=== PATIENT | female | born 1940 | race Caucasian/White ===

== ENCOUNTER 2016-09-08 13:18 | Emergency (ER) | payer OTHER ==
[~2016-09-08 13:18] MED LIST: ALLO100T PO; AMIT25TA20 PO; AMLO10 PO; CLON-352 PO; COLE1TAB2 PO; FISH1000 PO; MAXZ25 PO; PRAV40TA2 PO
[2016-09-08 13:40] VITALS: BP 126/61; PULSE 89; RESP 20; TEMP 99.4; O2SAT 95
[2016-09-08 13:44] VITALS: BP 125/60; PULSE 88; RESP 20; TEMP 99.4; O2SAT 96
--- NOTE | 2016-09-08 13:53 | PD ---
HPI . dizziness and fever since earlier today while getting off the bus Chief Complaint: Fever Time Seen by Provider: 13:53 Travel History International Travel<30 days: No Contact w/Intl Traveler<30days: No Traveled to known affect area: No History of Present Illness HPI 76-year-old female with history of end-stage renal disease on dialysis, questionable diabetes, hypertension, hyperlipidemia, neuropathy, gout and GERD here with complaints of some dizziness and staggering while getting off the bus. Patient was brought in via [facility] and was found to have a mild temperature elevation of 99.4. She was given 1500 mL of fluids and is now feeling significantly better. She tells me that she had to run out of her house this morning and had not had much to eat or drink. She says she had been walking around outside and after getting off the bus felt somewhat dizzy. She denies any loss of consciousness or altered mental status. She tells me that she is feeling really good and has no specific complaints at this time. At the time of examination patient denies any chest pain, shortness of breath, nausea, vomiting, diaphoresis, abdominal pain, weakness, or fatigue. PFSH Past Medical History Cancer: No Cardiovascular Problems: No High Cholesterol: Yes Coronary Artery Disease: Yes Diabetes: No Diminished Hearing: No Gout: Yes Hepatitis: No Hiatal Hernia: No Hypertension: Yes Medical other: No Neurologic: Yes (NEUROPATHY) Respiratory: No Thyroid Disease: No ?: Not Menopausal: Yes Tubal Ligation: Yes Past Surgical History Other Surgery: Yes (LT ARM FISTULA) Social History Alcohol Use: No Tobacco Use: No Substance Use: No Allergies-Medications (Allergen,Severity, Reaction): Coded Allergies: No Known Allergies (Verified , 09/08/16) Reported Meds & Prescriptions Reported Meds & Active Scripts Active Keflex (Cephalexin) 500 Mg Cap 500 Mg PO Q6H Review of Systems General / Constitutional: No: Fever Eyes: No: Visual changes HENT: No: Headaches Cardiovascular: No: Chest Pain or Discomfort Respiratory: No: Shortness of Breath Gastrointestinal: No: Abdominal Pain Genitourinary: No: Dysuria Musculoskeletal: No: Pain Skin: No Rash Neurologic: Positive: Dizziness, No: Weakness Psychiatric: No: Depression Endocrine: No: Polydipsia Hematologic/Lymphatic: No: Easy Bruising Physical Exam Narrative GENERAL: AAO x 3, no acute distress, Well-nourished, well-developed patient. SKIN: Warm and dry. No visible rashes or bruising. HEAD: Normocephalic and atraumatic. EYES: No scleral icterus. No injection or drainage. EOM intact, PERRLA ENT: No nasal drainage noted. Mucous membranes pink. Airway patent. NECK: Supple, trachea midline. No JVD. CARDIOVASCULAR: Regular rate and rhythm without murmurs, gallops, or rubs. RESPIRATORY: Breath sounds equal bilaterally. No accessory muscle use. No rhonchi or rales. GASTROINTESTINAL: Abdomen soft, non-tender, nondistended. EXTREMITIES: No cyanosis or edema. BACK: Nontender without obvious deformity. No CVA tenderness. PSYCH: AAO x 3, normal affect. Data Data Last Documented VS Vital Signs Date Time Temp Pulse Resp B/P Pulse Ox O2 Delivery O2 Flow Rate FiO2 09/08/16 14:59 77 20 125/60 96 Room Air 09/08/16 13:44 99.4 Orders Electrocardiogram (09/08/16 13:53) Complete Blood Count With Diff (09/08/16 13:53) Blood Glucose (09/08/16 13:53) Ecg Monitoring (09/08/16 13:53) Iv Access Insert/Monitor (09/08/16 13:53) Oximetry (09/08/16 13:53) Sodium Chloride 0.9% Flush (Ns Flush) (09/08/16 14:00) Basic Metabolic Panel (Bmp) (09/08/16 13:53) Sodium Chloride 0.9% Flush (Ns Flush) (09/08/16 14:00) Lactic Acid Sepsis Protocol (09/08/16 13:58) Urinalysis - C+S If Indicated (09/08/16 13:58) Blood Culture (09/08/16 13:58) Chest, Single Ap (09/08/16 13:58) Sodium Chloride 0.9% Flush (Ns Flush) (09/08/16 14:00) Urine Culture (09/08/16 14:40) Labs Laboratory Tests Test 09/08/16 09/08/16 09/08/16 14:30 14:40 14:50 Lactic Acid Level 0.8 mmol/L Urine Color YELLOW Urine Turbidity HAZY Urine pH 7.5 Urine Specific [place] 1.007 Urine Protein 30 mg/dL Urine Glucose (UA) NEG mg/dL Urine Ketones NEG mg/dL Urine Occult Blood NEG Urine Nitrite NEG Urine Bilirubin NEG Urine Urobilinogen LESS THAN 2.0 MG/DL Urine Leukocyte Esterase MOD Urine WBC 7 /hpf Urine Squamous Epithelial 7 /hpf Cells Urine Transitional Epithelial 2 /hpf Cells Microscopic Urinalysis Comment CATH-CULTURE IND White Blood Count 13.6 TH/MM3 Red Blood Count 3.51 MIL/MM3 Hemoglobin 10.6 GM/DL Hematocrit 31.2 % Mean Corpuscular Volume 88.9 FL Mean Corpuscular Hemoglobin 30.1 PG Mean Corpuscular Hemoglobin 33.8 % Concent Red Cell Distribution Width 13.4 % Platelet Count 234 TH/MM3 Mean Platelet Volume 7.7 FL Neutrophils (%) (Auto) 79.9 % Lymphocytes (%) (Auto) 12.7 % Monocytes (%) (Auto) 5.5 % Eosinophils (%) (Auto) 0.9 % Basophils (%) (Auto) 1.0 % Neutrophils # (Auto) 10.9 TH/MM3 Lymphocytes # (Auto) 1.7 TH/MM3 Monocytes # (Auto) 0.8 TH/MM3 Eosinophils # (Auto) 0.1 TH/MM3 Basophils # (Auto) 0.1 TH/MM3 CBC Comment DIFF FINAL Differential Comment Sodium Level 140 MEQ/L Potassium Level 3.9 MEQ/L Chloride Level 107 MEQ/L Carbon Dioxide Level 21.7 MEQ/L Anion Gap 11 MEQ/L Blood Urea Nitrogen 38 MG/DL Creatinine 3.60 MG/DL Estimat Glomerular Filtration 12 ML/MIN Rate Random Glucose 79 MG/DL Calcium Level 7.7 MG/DL [facility] Medical Decision Making Medical Screen Exam Complete: Yes Emergency Medical Condition: Yes Medical Record Reviewed: Yes Differential Diagnosis dehydration, hypotension, less likely sepsis, Narrative Course 76-year-old female with history of end-stage renal disease on dialysis, questionable diabetes, hypertension, hyperlipidemia, neuropathy, gout and GERD here with complaints of some dizziness and staggering while getting off the bus. Patient was brought in via [facility] and was found to have a mild temperature elevation of 99.4. She was given 1500 mL of fluids and is now feeling significantly better. She tells me that she had to run out of her house this morning and had not had much to eat or drink. She says she had been walking around outside and after getting off the bus felt somewhat dizzy. She denies any loss of consciousness or altered mental status. She tells me that she is feeling really good and has no specific complaints at this time. At the time of examination patient denies any chest pain, shortness of breath, nausea, vomiting, diaphoresis, abdominal pain, weakness, or fatigue. Patient seen and examined. Case discussed with Dr. Salgado recommend cxr, ua, labs, to r/o infection. If normal, patient will be discharged home. White count elevated and patient has urine that is positive for leukocytes Will treat with keflex Needs to f/u with Primary care provider. Patient verbalized understanding of instructions, questions were answered, and thanked me for their care. I advised them if their condition worsens, please return to the nearest emergency room for further care. Diagnosis Primary Impression: Urinary tract infection Qualified Code: N30.00 - Acute cystitis without hematuria Patient Instructions: General Instructions Additional Instructions: Please return to emergency department if your symptoms return or worsen. Follow up with your primary care provider. Take medications as prescribed. Med/Other Pt SpecificInfo: Prescription(s) given, No Change to Meds Scripts Cephalexin (Keflex)500 Mg [id number] Mg PO Q6H #27 CAP Ref 0 Prov:Sarah Pope 09/08/16 Disposition: 01 DISCHARGE HOME Condition: Stable Sarah Pope Sep 08, 2016 13:53
[2016-09-08] MEDS ORDERED: SODIUM CHLORIDE 0.9% FLUSH 5 ML FLUSH IVF PRN ×3 (14:00)
[2016-09-08 14:59] VITALS: BP 125/60; PULSE 77; RESP 20; O2SAT 96
--- NOTE | 2016-09-08 14:59 | RADRPT ---
EXAM DATE/TIME: 09/08/2016 14:33 [place] COMPARISON: CHEST PA & LAT, July 05, 2012, 9:20. INDICATIONS : Shortness of breath. Syncope. MEDICAL HISTORY : Hypertension. Coronary artery disease. SURGICAL HISTORY : None. ENCOUNTER: Initial ACUITY: 1 day PAIN SCORE: 0/10 LOCATION: Bilateral chest FINDINGS: A single view of the chest demonstrates the lungs to be symmetrically aerated without evidence of mas s, infiltrate or effusion. There appear to be some stable calcified probable pleural plaques in the u pper lung olsen. This is unchanged from 2011. The cardiomediastinal contours are unremarkable. Oss eous structures are intact. CONCLUSION: No acute disease. No significant change has occurred. Xavi Davenport MD on September 08, 2016 at 14:57 Board Certified Radiologist. This report was verified electronically.
[2016-09-08 15:03] LABS: BLOOD, URINE NEG (NEG); COMMENT (UR) CATH-CULTURE IND; CULTURE IF INDICATED CATH CULTURE IND; GLUCOSE,URINE NEG (NEG); KETONE, URINE NEG (NEG); NITRITE,URINE NEG (NEG); PH, URINE 7.5 (5.0-8.5); SQUAMOUS EPITHELIAL CELL URINE 7 /hpf (0-5); TRANSITIONAL EPI CELLS, URINE 2 /hpf; URINE COLOR YELLOW (YELLW/STRAW)
[2016-09-08 15:05] LABS: AUTOMATED NEUTROPHIL # 10.9 TH/MM3 (1.8-7.7); BASOPHIL # 0.1 TH/MM3 (0-0.2); EOSINOPHIL # 0.1 TH/MM3 (0-0.4); EOSINOPHIL % 0.9 % (0.0-4.0); HEMATOCRIT 31.2 % (35.0-46.0); HEMO FLAGS DIFF FINAL; LYMPH % 12.7 % (9.0-44.0); LYMPHOCYTE # 1.7 TH/MM3 (1.0-4.8); MEAN CELL VOLUME 88.9 FL (80.0-100.0); MEAN CORPUSCULAR HEMOGLOBIN 30.1 PG (27.0-34.0); MEAN CORPUSCULAR HGB CONC 33.8 % (32.0-36.0); MONO % 5.5 % (0.0-8.0); NEUT % 79.9 % (16.0-70.0); PLATELET COUNT 234 TH/MM3 (150-450); RED BLOOD COUNT 3.51 MIL/MM3 (4.00-5.30); RED CELL DISTRIBUTION WIDTH 13.4 % (11.6-17.2); WHITE BLOOD COUNT 13.6 TH/MM3 (4.0-11.0)
[2016-09-08 15:47] LABS: BICARBONATE 21.7 MEQ/L (21.0-32.0); POTASSIUM 3.9 MEQ/L (3.5-5.1)
[2016-09-08] MEDS ORDERED: CEPH-460 PO (15:51)
--- NOTE | 2016-09-08 16:34 | PD ---
Physical Exam Date Seen by Provider: Sep 08, 2016 Time Seen by Provider: 14:00 Narrative I, Dr. Martinez, have reviewed the advance practice practitioner's documentation and am in agreement, met with the patient face to face, made the diagnosis, and the medical decision making was done by me. *My assessment and Findings: Patient seen and evaluated with PA, please see CHASITY ferraro for further details. Patient presenting with dizziness, after getting off a bus. No focal neurological deficits identified. No chest pains or shortness of breath. She states that she hadn't eat anything this morning. Her initial blood sugar was 98. EKG shows NSR, no ST elevation or depression, and no arrhythmias. No significant T-wave inversions. Laboratory Tests Test 09/08/16 09/08/16 14:40 14:50 Urine Turbidity HAZY (CLEAR) Urine Protein 30 mg/dL (NEG-TRACE) Urine Leukocyte Esterase MOD (NEG) Urine WBC 7 /hpf (0-5) White Blood Count 13.6 TH/MM3 (4.0-11.0) Red Blood Count 3.51 MIL/MM3 (4.00-5.30) Hemoglobin 10.6 GM/DL (11.6-15.3) Hematocrit 31.2 % (35.0-46.0) Neutrophils (%) (Auto) 79.9 % (16.0-70.0) Neutrophils # (Auto) 10.9 TH/MM3 (1.8-7.7) Blood Urea Nitrogen 38 MG/DL (7-18) Creatinine 3.60 MG/DL (0.50-1.00) Estimat Glomerular Filtration 12 ML/MIN (>89) Rate Calcium Level 7.7 MG/DL (8.5-10.1) Last 24 hours Impressions Chest X-Ray 09/08/16 9733 Signed Impressions: Service Date/Time: Thursday, September 08, 2016 14:33 - CONCLUSION: No acute disease. No significant change has occurred. Xavi Davenport MD Patient has end-stage renal disease on dialysis, dialyzed yesterday, her kidney function tests are mildly elevated likely secondary to chronic renal failure. Electrolytes are unremarkable. Vital signs are stable in the ER. EKG did not show dysrhythmias. Symptoms had subsided by the time she is in the ER. At this point, she appears to be doing well and my plan would be to release her with follow-up to primary care physician. Return for any worsening in symptoms as necessary. She does have a UTI which I plan to treat with antibiotics as precaution. The plan was discussed with her and she states understanding. Data Data Last Documented VS Vital Signs Date Time Temp Pulse Resp B/P Pulse Ox O2 Delivery O2 Flow Rate FiO2 09/08/16 14:59 77 20 125/60 96 Room Air 09/08/16 13:44 99.4 Orders Electrocardiogram (09/08/16 13:53) Complete Blood Count With Diff (09/08/16 13:53) Blood Glucose (09/08/16 13:53) Ecg Monitoring (09/08/16 13:53) Iv Access Insert/Monitor (09/08/16 13:53) Oximetry (09/08/16 13:53) Sodium Chloride 0.9% Flush (Ns Flush) (09/08/16 14:00) Basic Metabolic Panel (Bmp) (09/08/16 13:53) Sodium Chloride 0.9% Flush (Ns Flush) (09/08/16 14:00) Lactic Acid Sepsis Protocol (09/08/16 13:58) Urinalysis - C+S If Indicated (09/08/16 13:58) Blood Culture (09/08/16 13:58) Chest, Single Ap (09/08/16 13:58) Sodium Chloride 0.9% Flush (Ns Flush) (09/08/16 14:00) Urine Culture (09/08/16 14:40) Labs Laboratory Tests Test 09/08/16 09/08/16 09/08/16 14:30 14:40 14:50 Lactic Acid Level 0.8 mmol/L Urine Color YELLOW Urine Turbidity HAZY Urine pH 7.5 Urine Specific [place] 1.007 Urine Protein 30 mg/dL Urine Glucose (UA) NEG mg/dL Urine Ketones NEG mg/dL Urine Occult Blood NEG Urine Nitrite NEG Urine Bilirubin NEG Urine Urobilinogen LESS THAN 2.0 MG/DL Urine Leukocyte Esterase MOD Urine WBC 7 /hpf Urine Squamous Epithelial 7 /hpf Cells Urine Transitional Epithelial 2 /hpf Cells Microscopic Urinalysis Comment CATH-CULTURE IND White Blood Count 13.6 TH/MM3 Red Blood Count 3.51 MIL/MM3 Hemoglobin 10.6 GM/DL Hematocrit 31.2 % Mean Corpuscular Volume 88.9 FL Mean Corpuscular Hemoglobin 30.1 PG Mean Corpuscular Hemoglobin 33.8 % Concent Red Cell Distribution Width 13.4 % Platelet Count 234 TH/MM3 Mean Platelet Volume 7.7 FL Neutrophils (%) (Auto) 79.9 % Lymphocytes (%) (Auto) 12.7 % Monocytes (%) (Auto) 5.5 % Eosinophils (%) (Auto) 0.9 % Basophils (%) (Auto) 1.0 % Neutrophils # (Auto) 10.9 TH/MM3 Lymphocytes # (Auto) 1.7 TH/MM3 Monocytes # (Auto) 0.8 TH/MM3 Eosinophils # (Auto) 0.1 TH/MM3 Basophils # (Auto) 0.1 TH/MM3 CBC Comment DIFF FINAL Differential Comment Sodium Level 140 MEQ/L Potassium Level 3.9 MEQ/L Chloride Level 107 MEQ/L Carbon Dioxide Level 21.7 MEQ/L Anion Gap 11 MEQ/L Blood Urea Nitrogen 38 MG/DL Creatinine 3.60 MG/DL Estimat Glomerular Filtration 12 ML/MIN Rate Random Glucose 79 MG/DL Calcium Level 7.7 MG/DL [facility] Medical Record Reviewed: Yes Supervised Visit with RONI: Yes Diagnosis Primary Impression: Urinary tract infection Qualified Code: N30.00 - Acute cystitis without hematuria Patient Instructions: General Instructions Departure Forms: Tests/Procedures Additional Instruction: Please return to emergency department if your symptoms return or worsen. Follow up with your primary care provider. Take medications as prescribed. Scripts Cephalexin (Keflex)500 Mg [id number] Mg PO Q6H #27 CAP Ref 0 Prov:Sarah Pope 09/08/16 Disposition: 01 DISCHARGE HOME Condition: Stable [place] Martinez MD Sep 08, 2016 16:33
[2016-09-08 16:49] VITALS: BP 132/71
--- NOTE | 2016-09-08 21:16 | EKG ---
Date Performed: 09/08/2016 Time Performed: 15:04:16 PTAGE: 76 years EKG: Sinus rhythm NORMAL ECG PREVIOUS TRACING : 08/29/2013 16.49 No significant change from previous tracing noted. DOCTOR: Robinson Mitchell Interpretating Date/Time 09/08/2016 21:16:50
== END 2016-09-08 16:51 | disposition home or self-care (01) ==
LOC: NEPC 13:18
DX: N39.0 Urinary tract infection, site not specified (principal); I12.0 Hypertensive chronic kidney disease with stage 5 chronic kidney disease or end stage renal disease; M10.9 Gout, unspecified; E78.00 Pure hypercholesterolemia, unspecified; Z99.2 Dependence on renal dialysis
CPT/HCPCS: 71010; 80048; 81001; 83605; 85025; 87040; 87086; 93005

== ENCOUNTER 2017-12-15 13:22 | Inpatient (IN) | payer OTHER ==
[~2017-12-15] VITALS: Ht 144.8 cm; Wt 41.0 kg
[~2017-12-15 13:22] MED LIST changes: -ALLO100T PO; -AMIT25TA20 PO; -AMLO10 PO; +CEPH-460 PO; -CLON-352 PO; -COLE1TAB2 PO; -FISH1000 PO; -MAXZ25 PO; -PRAV40TA2 PO
[2017-12-15 13:35] VITALS: BP 112/54; PULSE 86; RESP 18; TEMP 100; TEMP 100.3; O2SAT 95
--- NOTE | 2017-12-15 13:48 | PD ---
HPI Chief Complaint: Medical Clearance Time Seen by Provider: 13:37 Travel History International Travel<30 days: No Contact w/Intl Traveler<30days: No Traveled to known affect area: No History of Present Illness HPI 77yo F with PMH of ESRD on HD T//Sun was sent here from [facility] for evaluation. As per [facility], pt was clutching her chest and did not fall but look like she was going to fall so instead of doing dialysis, they called [facility]. Dr. Benitez is his nursing manager. Pt states she has been coughing more. Denies any fever, chest pain, sob, n/v, abdominal pain, focal weakness or numbness. PFSH Past Medical History Cancer: No Cardiovascular Problems: No High Cholesterol: Yes Coronary Artery Disease: Yes Diabetes: No Diminished Hearing: No Gout: Yes Hepatitis: No Hiatal Hernia: No Hypertension: Yes Medical other: Yes (POOR HISTORIAN) Neurologic: Yes (NEUROPATHY) Respiratory: No Thyroid Disease: No Menopausal: Yes Tubal Ligation: Yes Past Surgical History Other Surgery: Yes (LT ARM FISTULA) Social History Alcohol Use: No Tobacco Use: No Substance Use: No Allergies-Medications (Allergen,Severity, Reaction): Coded Allergies: No Known Allergies (Verified Allergy, Unknown, 12/15/17) atorvastatin (Verified Allergy, Unknown, 12/15/17) gemfibrozil (Verified Allergy, Unknown, 12/15/17) Reported Meds & Prescriptions Reported Meds & Active Scripts Active Reported Cephalexin 500 Mg Tab 500 Mg PO Q12H Amitriptyline (Amitriptyline HCl) 75 Mg Tab 75 Mg PO HS Pravastatin 40 Mg Tab 40 Mg PO DAILY Amlodipine (Amlodipine Besylate) 10 Mg Tab 10 Mg PO HS Clonidine (Clonidine HCl) 0.1 Mg Tab 0.1 Mg PO HS Allopurinol 100 Mg Tab 100 Mg PO DAILY Flonase Nasal [place] (Fluticasone Nasal [place]) 50 Mcg/Act [place] 50 Mcg EACH NARE BID Triamterene-Hydrochlorothiazide 37.5-25 Mg Tab 1 Tab PO DAILY Nephro-Sixto (B-Complex W/ C & Folic Acid) 1 Tab 1 Tab PO DAILY 30 Days Fish Oil + D3 (Fish Oil-Cholecalciferol) 1,200-1,000 Mg-Unit Cap 1 Cap PO DAILY [lidocaine HCL] 2.5 EXTERNAL Review of Systems Except as stated in HPI: all other systems reviewed are Neg Physical Exam Narrative GENERAL: 77yo F not in distress. SKIN: Focused skin assessment warm/dry. HEAD: Atraumatic. Normocephalic. EYES: Pupils equal and round. No scleral icterus. No injection or drainage. ENT: No nasal bleeding or discharge. Mucous membranes pink and moist. NECK: Trachea midline. No JVD. CARDIOVASCULAR: Regular rate and rhythm. No murmur appreciated. RESPIRATORY: No accessory muscle use. Clear to auscultation. Breath sounds equal bilaterally. GASTROINTESTINAL: Abdomen soft, non-tender, nondistended. MUSCULOSKELETAL: No obvious deformities. No clubbing. No cyanosis. No edema. NEUROLOGICAL: Awake and alert. No obvious cranial nerve deficits. Motor grossly within normal limits. Normal speech. PSYCHIATRIC: Appropriate mood and affect; insight and judgment normal. Data Data Last Documented VS Vital Signs Date Time Temp Pulse Resp B/P (MAP) Pulse Ox O2 Delivery O2 Flow Rate FiO2 12/15/17 13:35 100.3 86 18 112/54 (73) 95 Room Air Orders Orders Electrocardiogram (12/15/17 ) Chest, Single Ap (12/15/17 ) Complete Blood Count With Diff (12/15/17 13:42) Basic Metabolic Panel (Bmp) (12/15/17 13:42) Troponin I (12/15/17 13:42) Prothrombin Time / Inr (Pt) (12/15/17 13:42) Act Partial Throm Time (Ptt) (12/15/17 13:42) Blood Culture (12/15/17 13:42) Lactic Acid Sepsis Protocol (12/15/17 13:42) Acetaminophen (Tylenol) (12/15/17 15:15) Admit Order (Ed Use Only) (12/15/17 15:51) Labs Laboratory Tests Test 12/15/17 13:50 12/15/17 13:56 White Blood Count 20.3 TH/MM3 Red Blood Count 3.01 MIL/MM3 Hemoglobin 9.8 GM/DL Hematocrit 28.1 % Mean Corpuscular Volume 93.1 FL Mean Corpuscular Hemoglobin 32.6 PG Mean Corpuscular Hemoglobin Concent 35.0 % Red Cell Distribution Width 13.4 % Platelet Count 479 TH/MM3 Mean Platelet Volume 7.4 FL Neutrophils (%) (Auto) 90.8 % Lymphocytes (%) (Auto) 3.5 % Monocytes (%) (Auto) 4.8 % Eosinophils (%) (Auto) 0.4 % Basophils (%) (Auto) 0.5 % Neutrophils # (Auto) 18.4 TH/MM3 Lymphocytes # (Auto) 0.7 TH/MM3 Monocytes # (Auto) 1.0 TH/MM3 Eosinophils # (Auto) 0.1 TH/MM3 Basophils # (Auto) 0.1 TH/MM3 CBC Comment DIFF FINAL Differential Comment Prothrombin Time 11.0 SEC Prothromb Time International Ratio 1.1 RATIO Activated Partial Thromboplast Time 31.5 SEC Blood Urea Nitrogen 42 MG/DL Creatinine 4.84 MG/DL Random Glucose 128 MG/DL Calcium Level 9.7 MG/DL Sodium Level 137 MEQ/L Potassium Level 3.8 MEQ/L Chloride Level 100 MEQ/L Carbon Dioxide Level 21.3 MEQ/L Anion Gap 16 MEQ/L Estimat Glomerular Filtration Rate 9 ML/MIN Troponin I 0.02 NG/ML Lactic Acid Level 1.5 mmol/L MDM Medical Decision Making Medical Screen Exam Complete: Yes Emergency Medical Condition: Yes Interpretation(s) EKG: NSR 82bpm. Normal axis. No ST segment elevation or depression. [place] depression diffusely. Differential Diagnosis Pneumonia vs. pleural effusion vs. atypical ACS Narrative Course 77yo F with worsening cough. Pt was sent here from dialysis center prior to having hemodialysis today because she was clutching her chest and looked like she was going to fall over. Pt denies any complaints except for cough. Temperature was 100.3F, leukocytosis at 20.3. H/H low at 9.8/28.1 but pt is ESRD and only slightly lower than 2017. Platelet is elevated at 479. Lactic acid is normal at 1.5. BUN/creatinine elevated at 42/4.84 which is mildly elevated compare to 38/3.60 from 08/2016. Troponin negative. CXR showed bilateral atelectasis. Pt said she does not produce urine. Discussed with Dr. Braun for admission and likely antibiotics since pt does have a low grade fever, is immunocompromised due to being on hemodialysis and has leukocytosis at 20.3. He said he will start antibiotics. Nephrology was called but did not hear back from them. Blood cultures were sent and pending. Do not have a source of infection at this time but presumed early bronchopneumonia since pt is complaining of new cough. Diagnosis Primary Impression: Leukocytosis Qualified Codes: D72.829 - Elevated white blood cell count, unspecified Admitting Information Admitting Physician Requests: Stephany Durham DO Dec 15, 2017 13:48
--- NOTE | 2017-12-15 14:12 | RADRPT ---
EXAM DATE: 12/15/2017 2:05 PM EDT AGE/SEX: 77 years / Female INDICATIONS: Cough. CLINICAL DATA: This is the patient's initial encounter. Patient reports that signs and symptoms have been present for 1 day and indicates a pain score of 0/10. MEDICAL/SURGICAL HISTORY: . Hypertension. Coronary artery disease. . None COMPARISON: [facility] [place], CHEST SINGLE AP, 09/08/2016. . FINDINGS: Trace atelectasis left base and right midlung. No dense or confluent consolidation demonstrated. No p leural effusion or pneumothorax. Heart size stable, within normal limits. CONCLUSION: Mild bilateral atelectasis as above. Otherwise negative. Electronically signed by: Negrito Newberry MD 12/15/2017 2:11 PM EDT
[2017-12-15 14:18] LABS: AUTOMATED NEUTROPHIL # 18.4 TH/MM3 (1.8-7.7); BASOPHIL # 0.1 TH/MM3 (0-0.2); BASOPHIL % 0.5 % (0.0-2.0); EOSINOPHIL # 0.1 TH/MM3 (0-0.4); EOSINOPHIL % 0.4 % (0.0-4.0); HEMATOCRIT 28.1 % (35.0-46.0); HEMOGLOBIN 9.8 GM/DL (11.6-15.3); LYMPH % 3.5 % (9.0-44.0); LYMPHOCYTE # 0.7 TH/MM3 (1.0-4.8); MEAN CELL VOLUME 93.1 FL (80.0-100.0); MEAN CORPUSCULAR HEMOGLOBIN 32.6 PG (27.0-34.0); MEAN PLATELET VOLUME 7.4 FL (7.0-11.0); MONO % 4.8 % (0.0-8.0); NEUT % 90.8 % (16.0-70.0); PLATELET COUNT 479 TH/MM3 (150-450); RED BLOOD COUNT 3.01 MIL/MM3 (4.00-5.30); RED CELL DISTRIBUTION WIDTH 13.4 % (11.6-17.2); WHITE BLOOD COUNT 20.3 TH/MM3 (4.0-11.0)
[2017-12-15 14:29] LABS: INTERNATIONAL NORMALIZED RATIO 1.1 RATIO
[2017-12-15 14:50] LABS: BICARBONATE 21.3 MEQ/L (21.0-32.0); CALCIUM 9.7 MG/DL (8.5-10.1); CREATININE 4.84 MG/DL (0.50-1.00)
[2017-12-15 14:52] LABS: TROPONIN I 0.02 NG/ML (0.02-0.05)
[2017-12-15] MEDS ORDERED: ACETAMINOPHEN 325 MG TAB PO ONE (15:15)
--- NOTE | 2017-12-15 15:49 | HHI.HP ---
[facility] Service [facility] Primary Care Physician Herve Barros MD Admission Diagnosis Diagnoses: Chief Complaint: chest pain and cough Travel History International Travel<30 Days: No Contact w/Intl Traveler <30 Da: No Traveled to Known Affected Are: No History of Present Illness This is a 77-year-old female with history of gout, hypertension, end-stage renal disease on hemodialysis every Sunday, and Sunday sent from [facility] dialysis for evaluation of chest pain before before dialysis. Patient is a poor historian and not very cooperative. Very history from [facility]/ED nurse/ ED physician, patient was about to get her dialysis when she clutched her anterior chest, almost fell forward and then clutched her anterior chest again which is suspicious for Hess's sign.. Because of this, the patient was sent from dialysis center to the hospital. Per patient, she had 10/10 chest pain but difficult to describe, pressure-like, not associated with any shortness of breath. She is chest pain-free at this point. No other complaints. Upon further probing, the patient endorses a cough for about a few weeks now, nonproductive, not associated with any shortness of breath or fever. Review of Systems ROS Limitations: Poor Historian Past Family Social History Past Medical History Neuropathy Dyslipidemia Coronary artery disease ESRD Gout Hypertension Past Surgical History Left arm fistula Tubal ligation Reported Medications Poor historian, awaiting medication list from son. Allergies: Coded Allergies: No Known Allergies (Verified Adverse Reaction, Unknown, 12/15/17) Family History Poor historian Social History Patient denies smoking, significant alcohol intake or use of any illicit drugs. Physical Exam Vital Signs Vital Signs Date Time Temp Pulse Resp B/P (MAP) Pulse Ox O2 Delivery O2 Flow Rate FiO2 12/15/17 13:35 100.3 86 18 112/54 (73) 95 Room Air Physical Exam Not in distress, well-nourished, looks stated age PERRL, pink conjunctiva with mild left conjunctival injection. Nose without bleeding, airway patent Normal rate and regular rhythm, no murmurs gallops or rubs appreciated. Bilateral crackles at bases, no rhonchi or wheezing. Normal bowel sounds, soft, non-tender, nondistended, no guarding. Extremities without clubbing, cyanosis, or edema. No rash of generalized distribution. Skin is warm and dry. AAO to self, place and time. No cranial nerve deficits, no focal deficits. Laboratory Laboratory Tests Test 12/15/17 13:50 12/15/17 13:56 White Blood Count 20.3 Red Blood Count 3.01 Hemoglobin 9.8 Hematocrit 28.1 Mean Corpuscular Volume 93.1 Mean Corpuscular Hemoglobin 32.6 Mean Corpuscular Hemoglobin Concent 35.0 Red Cell Distribution Width 13.4 Platelet Count 479 Mean Platelet Volume 7.4 Neutrophils (%) (Auto) 90.8 Lymphocytes (%) (Auto) 3.5 Monocytes (%) (Auto) 4.8 Eosinophils (%) (Auto) 0.4 Basophils (%) (Auto) 0.5 Neutrophils # (Auto) 18.4 Lymphocytes # (Auto) 0.7 Monocytes # (Auto) 1.0 Eosinophils # (Auto) 0.1 Basophils # (Auto) 0.1 CBC Comment DIFF FINAL Differential Comment Prothrombin Time 11.0 Prothromb Time International Ratio 1.1 Activated Partial Thromboplast Time 31.5 Blood Urea Nitrogen 42 Creatinine 4.84 Random Glucose 128 Calcium Level 9.7 Sodium Level 137 Potassium Level 3.8 Chloride Level 100 Carbon Dioxide Level 21.3 Anion Gap 16 Estimat Glomerular Filtration Rate 9 Troponin I 0.02 Lactic Acid Level 1.5 Date/Time Source Procedure Growth Status 12/15/17 13:55 Blood Peripheral Aerobic Blood Culture Pending Received 12/15/17 13:55 Blood Peripheral Anaerobic Blood Culture Pending Received Result Diagram: 12/15/17 1350 12/15/17 1350 Imaging Last Impressions Chest X-Ray 12/15/17 0000 Signed Impressions: CONCLUSION: Mild bilateral atelectasis as above. Otherwise negative. Caprini VTE Risk Assessment Caprini VTE Risk Assessment: Mod/High Risk (score >= 2) Caprini Risk Assessment Model Point Value = 1 Point Value = 2 Point Value = 3 Point Value = 5 Age 41-60 Minor surgery BMI > 25 kg/m2 Swollen legs Varicose veins or History of unexplained or recurrent spontaneous Oral contraceptives or hormone replacement Sepsis (< 1 month) Serious lung disease, including pneumonia (< 1 month) Abnormal pulmonary function Acute myocardial infarction Congestive heart failure (< 1 month) History of inflammatory bowel disease Medical patient at bed rest Age 61-74 Arthroscopic surgery Major open surgery (> 45 min) Laparoscopic surgery (> 45 min) Malignancy Confined to bed (> 72 hours) Immobilizing plaster cast Central venous access Age >= 75 History of VTE Family history of VTE Factor V Leiden Prothrombin [id number] Lupus anticoagulant Anticardiolipin antibodies Elevated serum homocysteine Heparin-induced thrombocytopenia Other congenital or acquired thrombophilia Stroke (< 1 month) Elective arthroplasty Hip, pelvis, or leg fracture Acute spinal cord injury (< 1 month) Prophylaxis Regimen Total Risk Factor Score Risk Level Prophylaxis Regimen 0-1 Low Early ambulation 2 Moderate Order ONE of the following: *Sequential Compression Device (SCD) *Heparin 5000 units SQ BID 3-4 Higher Order ONE of the following medications: *Heparin 5000 units SQ TID *Enoxaparin/Lovenox 40 mg SQ daily (WT < 150 kg, CrCl > 30 mL/min) *Enoxaparin/Lovenox 30 mg SQ daily (WT < 150 kg, CrCl > 10-29 mL/min) *Enoxaparin/Lovenox 30 mg SQ BID (WT < 150 kg, CrCl > 30 mL/min) AND/OR *Sequential Compression Device (SCD) 5 or more Highest Order ONE of the following medications: *Heparin 5000 units SQ TID (Preferred with Epidurals) *Enoxaparin/Lovenox 40 mg SQ daily (WT < 150 kg, CrCl > 30 mL/min) *Enoxaparin/Lovenox 30 mg SQ daily (WT < 150 kg, CrCl > 10-29 mL/min) *Enoxaparin/Lovenox 30 mg SQ BID (WT < 150 kg, CrCl > 30 mL/min) AND *Sequential Compression Device (SCD) Assessment and Plan Assessment and Plan This is a 77-year-old female with history of hypertension and end-stage renal disease presenting with chest pain and cough. Chest pain, rule out cardiac origin, versus beginning bronchopneumonia-patient is a poor historian, there was no note of Hess's sign at the dialysis center. There is leukocytosis of 20 with neutrophilia but no bandemia, low-grade fever and complaint of cough. Chest x-ray personally reviewed, unremarkable. EKG reviewed, no ischemic changes. Will start Zosyn, check urinalysis, follow- up blood culture, check urine Legionella and antigen, check serial troponin and EKG. Initial troponin is 0.02, lactic acid is 1.5. Anemia-likely related to ESRD, monitor Coronary artery disease-awaiting medication list End-stage renal disease-dialysis every Sunday and Sunday, consult nephrology. DVT prophylaxis: Heparin Physician Certification 2 Midnight Certification Type: Continued Stay Order for Inpatient Services The services are ordered in accordance with Medicare regulations or non- Medicare payer requirements, as applicable. In the case of services not specified as inpatient-only, they are appropriately provided as inpatient services in accordance with the 2-midnight benchmark. Estimated LOS (days): 2 days is the estimated time the patient will need to remain in the hospital, assuming treatment plan goals are met and no additional complications. Post-Hospital Plan: Home Notes: Wrong template, should be observation for now. Ivan Braun MD Dec 15, 2017 15:49
[2017-12-15 16:10] VITALS: BP 134/63; PULSE 75; RESP 16; O2SAT 97
[2017-12-15] MEDS ORDERED: NALOXONE HCL 0.4 MG/ML AMP IV PUSH PRN (16:30)
[2017-12-15] MEDS ORDERED: ONDANSETRON HCL 4 MG/2 ML VIAL IVP PRN (16:30)
[2017-12-15] MEDS ORDERED: LACTULOSE SYRUP 20 GM/30 ML CUP PO PRN (16:30)
[2017-12-15] MEDS ORDERED: SODIUM CHLORIDE 0.9% FLUSH 10 ML FLUSH IV FLUSH PRN ×2 (16:30→16:45)
[2017-12-15] MEDS ORDERED: MAGNESIUM HYDROXIDE SUSP 30 ML CUP PO PRN (16:30)
[2017-12-15] MEDS ORDERED: SENNOSIDES 8.6 MG TAB PO PRN (16:30)
[2017-12-15] MEDS ORDERED: BISACODYL 10 MG SUPP RECTAL PRN (16:30)
[2017-12-15] MEDS ORDERED: ACETAMINOPHEN 325 MG TAB PO PRN ×2 (16:30→16:45)
[2017-12-15] MEDS ORDERED: SODIUM CHLOR 0.9% 1000 ML INJ 1,000 ML OTHER PRN (16:37)
[2017-12-15] MEDS ORDERED: SODIUM CHLOR 0.9% 1000 ML INJ 1,000 ML IV PRN (16:37)
[2017-12-15] MEDS ORDERED: ONDANSETRON HCL 4 MG/2 ML VIAL IV PUSH PRN (16:45)
[2017-12-15] MEDS ORDERED: diphenhydrAMINE HCL 25 MG CAP PO PRN (16:45)
[2017-12-15] MEDS ORDERED: NITROGLYCERIN 0.4 MG SL 25 TABS/BTL SL PRN (16:45)
[2017-12-15] MEDS ORDERED: MANNITOL 12.5 GM/50 ML VIAL IV PRN (16:45)
[2017-12-15] MEDS ORDERED: HEPARIN SODIUM - IV 10,000 UNITS/10 ML VIAL PRN (16:45)
[2017-12-15] MEDS ORDERED: EPOETIN ALFA 10,000 UNITS/ML VIAL IV PUSH PRN (16:45)
[2017-12-15] MEDS ORDERED: cloNIDine HCL 0.1 MG TAB PO PRN (16:45)
[2017-12-15] MEDS ORDERED: HEPARIN SODIUM - IV 10,000 UNITS/10 ML VIAL IV FLUSH PRN (16:45)
[2017-12-15] MEDS ORDERED: ALBUMIN 25% INJ 100 ML IV PRN (16:45)
[2017-12-15] MEDS ORDERED: GENTAMICIN SULFATE 20 MG/2 ML VIAL OTHER PRN (16:45)
[2017-12-15] MEDS: GELATIN 12 MM/7 MM FOAM TOP PRN (19:52)
[2017-12-15] MEDS: SODIUM CHLOR 0.9% 1000 ML INJ 1,000 ML OTHER PRN (19:53)
[2017-12-15] MEDS ORDERED: ALLO100T PO (19:54)
[2017-12-15] MEDS ORDERED: CEPH500T PO (19:54)
[2017-12-15] MEDS ORDERED: FLUT1SPR5 EACH NARE (19:54)
[2017-12-15] MEDS ORDERED: CLON0.1T PO (19:54)
[2017-12-15] MEDS ORDERED: PRAV40TA2 PO (19:54)
[2017-12-15] MEDS ORDERED: NEPHTAB3 PO (19:54)
[2017-12-15] MEDS ORDERED: LIDOCAINE HCL EXTERNAL (19:54)
[2017-12-15] MEDS ORDERED: FISHCAP4 PO (19:54)
[2017-12-15] MEDS ORDERED: AMLO10TA2 PO (19:54)
[2017-12-15] MEDS ORDERED: TRIA37.5 PO (19:54)
[2017-12-15] MEDS ORDERED: AMIT75TA2 PO (19:54)
[2017-12-15 20:12] VITALS: O2SAT 97
--- NOTE | 2017-12-15 20:51 | HHI.PR ---
Addendum to Inpatient Note Addendum Reason: Additional Documentation Additional Information S: [facility] called for chest pains during dialysis. Patient reports intermittent , sudden pain - not crushing, not pressure, not burning, not TTP, not pleuritic , but worse with coughing. The pain lasts for only a couple seconds at a time, then goes away completely. Patient is at rest with this chest pain. O: VS wnl Patient alternates between appearing comfortable and clutching her chest in discomfort, well-nourished, looks stated age MMM Nose without bleeding, airway patent Chest not tender to palpation over sternum Normal rate and regular rhythm, no murmurs gallops or rubs appreciated. No increased work of breathing. Lungs clear to anterior auscultation bilaterally. Abd soft, non-tender, nondistended, no guarding. Extremities without clubbing, cyanosis, or edema. No rash of generalized distribution. Skin is warm and dry. AAO to self, place and time. No cranial nerve deficits grossly, no focal deficits. A/P: Patient is 77-year-old female admitted for chest pain workup. ACS rule out underway, negative so far. EKG and troponin ordered and drawn. Reviewed EKG at bedside. Appears very similar to previous EKG without any significant changes. Reviewed previous chest x-ray. On my read, shows perihilar fullness versus pulmonary cephalization versus wide mediastinum. -Patient already receiving treatment for pneumonia -Consider CT imaging of chest to rule out aortic dissection, PE, but VS are wnl , so these are unlikely -EKG and troponin unremarkable. -History concerning for costochondritis, precordial catch syndrome Celso Cardona MD R2 Dec 15, 2017 20:51
[2017-12-15 20:59] VITALS: BP 136/64; PULSE 90; RESP 18; TEMP 98.3; O2SAT 95
[2017-12-15] MEDS: HEPARIN SODIUM - SQ 10,000 UNITS/ML VIAL SQ SCH (21:33)
[2017-12-15] MEDS: PIPERACIL-TAZO 3.375 GM PREMIX 50 ML IV SCH (21:33)
[2017-12-15] MEDS: DOCUSATE SODIUM 50 MG/SENNA 8.6 MG TAB PO SCH (21:34)
[2017-12-15] MEDS: SODIUM CHLORIDE 0.9% FLUSH 10 ML FLUSH IV FLUSH SCH (21:35)
[2017-12-15 23:37] VITALS: BP 132/62; PULSE 78; RESP 17; TEMP 98; O2SAT 95
[2017-12-16] VITALS (8 sets, daily range): BP systolic 128–155; BP diastolic 48–64; PULSE 68–114; RESP 16–20; TEMP 97.9–99.5; O2SAT 93–98
[2017-12-16] MEDS: HEPARIN SODIUM - SQ 10,000 UNITS/ML VIAL SQ SCH ×3 (02:09→18:45)
[2017-12-16] MEDS: PIPERACIL-TAZO 3.375 GM PREMIX 50 ML IV SCH ×2 (02:09→06:30)
[2017-12-16 03:26] LABS: AUTOMATED NEUTROPHIL # 20.3 TH/MM3 (1.8-7.7); BASOPHIL # 0.1 TH/MM3 (0-0.2); BASOPHIL % 0.3 % (0.0-2.0); EOSINOPHIL # 0.6 TH/MM3 (0-0.4); EOSINOPHIL % 2.5 % (0.0-4.0); HEMATOCRIT 25.9 % (35.0-46.0); HEMOGLOBIN 8.8 GM/DL (11.6-15.3); LYMPH % 4.5 % (9.0-44.0); MEAN CELL VOLUME 92.1 FL (80.0-100.0); MEAN CORPUSCULAR HEMOGLOBIN 31.2 PG (27.0-34.0); MEAN CORPUSCULAR HGB CONC 33.9 % (32.0-36.0); MEAN PLATELET VOLUME 7.7 FL (7.0-11.0); MONO % 4.7 % (0.0-8.0); MONOCYTE # 1.1 TH/MM3 (0-0.9); PLATELET COUNT 451 TH/MM3 (150-450); RED BLOOD COUNT 2.81 MIL/MM3 (4.00-5.30); RED CELL DISTRIBUTION WIDTH 13.2 % (11.6-17.2); WHITE BLOOD COUNT 23.1 TH/MM3 (4.0-11.0)
[2017-12-16 03:29] LABS: BICARBONATE 29.7 MEQ/L (21.0-32.0); CALCIUM 8.7 MG/DL (8.5-10.1); CREATININE 2.64 MG/DL (0.50-1.00); TROPONIN I 0.06 NG/ML (0.02-0.05)
--- NOTE | 2017-12-16 08:59 | PD.CONS ---
HPI Service Nephrology Consult Requested By Reason for Consult ESRD Primary Care Physician Herve Barros MD History of Present Illness This is a 77 year old lady with history of ESRD. She was sent from [facility] dialysis unit yesterday to hospital ER because of complaints of chest pain. Apparently patient was late to come to dialysis, was found to be "staggering" while walking, and complained of chest pain, clutching her chest, almost fell. Dialysis was deferred and she was sent to the ER. She was dialyzed in the hospital yesterday after I was notified of her admission. She is also noted to have leukocytosis, started on Zosyn. Afebrile. Troponin is mildly elevated today. Review of Systems Constitutional: COMPLAINS OF: Fatigue, DENIES: Fever Cardiovascular: COMPLAINS OF: Chest pain, DENIES: Palpitations Gastrointestinal: DENIES: Abdominal pain, Black stools, Bloody stools Hematologic/lymphatic: DENIES: Lymphadenopathy Neurologic: DENIES: Headache Past Family Social History Allergies: Coded Allergies: No Known Allergies (Verified Allergy, Unknown, 12/15/17) atorvastatin (Verified Allergy, Unknown, 12/15/17) gemfibrozil (Verified Allergy, Unknown, 12/15/17) Past Medical History Neuropathy Dyslipidemia Coronary artery disease ESRD Gout Hypertension Past Surgical History Left arm fistula Tubal ligation Reported Medications Cephalexin 500 Mg Tab 500 Mg PO Q12H Amitriptyline (Amitriptyline HCl) 75 Mg Tab 75 Mg PO HS Pravastatin 40 Mg Tab 40 Mg PO DAILY Amlodipine (Amlodipine Besylate) 10 Mg Tab 10 Mg PO HS Clonidine (Clonidine HCl) 0.1 Mg Tab 0.1 Mg PO HS Allopurinol 100 Mg Tab 100 Mg PO DAILY Flonase Nasal Caldwell (Fluticasone Nasal Caldwell) 50 Mcg/Act Caldwell 50 Mcg EACH NARE BID Triamterene-Hydrochlorothiazide 37.5-25 Mg Tab 1 Tab PO DAILY Nephro-Sixto (B-Complex W/ C & Folic Acid) 1 Tab 1 Tab PO DAILY 30 Days Fish Oil + D3 (Fish Oil-Cholecalciferol) 1,200-1,000 Mg-Unit Cap 1 Cap PO DAILY [lidocaine HCL] 2.5 EXTERNAL Active Ordered Medications Current Medications Medications (Trade) Dose Ordered Sig/Jennie Route Start Time Stop Time Status Last Admin (NS Flush) 2 ml UNSCH PRN IV FLUSH 12/15/17 16:30 (NS Flush) 2 ml BID IV FLUSH 12/15/17 21:00 12/15/17 21:35 (Tylenol) 650 mg Q4H PRN PO 12/15/17 16:30 (Zofran Inj) 4 mg Q6H PRN IVP 12/15/17 16:30 (Heparin Inj) 5,000 units Q8H SQ 12/15/17 18:00 12/16/17 02:09 (Narcan Inj) 0.4 mg UNSCH PRN IV PUSH 12/15/17 16:30 (Lorraine-Colace) 1 tab BID PO 12/15/17 21:00 12/15/17 21:34 (Milk Of Magnesia Liq) 30 ml Q12H PRN PO 12/15/17 16:30 (Senokot) 17.2 mg Q12H PRN PO 12/15/17 16:30 (Dulcolax Supp) 10 mg DAILY PRN RECTAL 12/15/17 16:30 (Lactulose Liq) 30 ml DAILY PRN PO 12/15/17 16:30 Piperacillin Sod/ Tazobactam Sod 50 ml @ 100 mls/hr Q6H IV 12/15/17 18:00 12/16/17 06:30 Sodium Chloride 1,000 ml @ 0 mls/hr Q0M PRN OTHER 12/15/17 16:37 12/15/17 19:53 (Heparin Inj) 8,000 units UNSCH PRN IV FLUSH 12/15/17 16:45 Sodium Chloride 1,000 ml @ 200 mls/hr Q5H PRN IV 12/15/17 16:37 Sodium Chloride 1,000 ml @ 0 mls/hr Q0M PRN OTHER 12/15/17 16:37 (Mannitol Inj) 12.5 gm UNSCH PRN IV 12/15/17 16:45 Albumin Human 100 ml @ 60 mls/hr UNSCH PRN IV 12/15/17 16:45 (NS Flush) 5 ml UNSCH PRN IV FLUSH 12/15/17 16:45 (Heparin Inj) UNSCH PRN .XX 12/15/17 16:45 (Gentamicin Inj) 20 mg UNSCH PRN OTHER 12/15/17 16:45 (Zofran Inj) 4 mg UNSCH PRN IV PUSH 12/15/17 16:45 (Tylenol) 650 mg UNSCH PRN PO 12/15/17 16:45 (Benadryl) 25 mg UNSCH PRN PO 12/15/17 16:45 (Nitrostat Sl) 0.4 mg UNSCH PRN SL 12/15/17 16:45 (Catapres) 0.1 mg UNSCH PRN PO 12/15/17 16:45 (Epogen Inj) 10,000 units UNSCH PRN IV PUSH 12/15/17 16:45 (Gelfoam 12 Mm/7 Mm Top) 1 foam UNSCH PRN TOP 12/15/17 16:45 12/15/17 19:52 (Flu (Quadrivalent) Vaccine Inj) 0.5 ml ONCE ONCE IM 12/17/17 10:00 12/17/17 10:01 Family History non contributory Social History Denied smoking or ETOH Physical Exam Vital Signs Vital Signs Date Time Temp Pulse Resp B/P (MAP) Pulse Ox O2 Delivery O2 Flow Rate FiO2 12/16/17 08:25 98.2 88 18 155/52 (86) 98 12/16/17 06:35 21 12/16/17 04:10 98.0 78 17 128/64 (85) 94 12/15/17 23:37 98.0 78 17 132/62 (85) 95 12/15/17 20:59 98.3 90 18 136/64 (88) 95 12/15/17 20:12 97 3.00 12/15/17 18:46 12/15/17 16:10 75 16 134/63 (86) 97 Room Air 12/15/17 13:35 100.3 86 18 112/54 (73) 95 Room Air Physical Exam GENERAL: awake, alert, not in distress. SKIN: Warm and dry. HEAD: Normocephalic. EYES: No scleral icterus. No injection or drainage. NECK: Supple, trachea midline. No JVD or lymphadenopathy. CARDIOVASCULAR: Regular rate and rhythm without murmurs, gallops, or rubs. RESPIRATORY: Breath sounds equal bilaterally. No accessory muscle use. GASTROINTESTINAL: Abdomen soft, non-tender, nondistended. MUSCULOSKELETAL: No cyanosis, or edema. BACK: Nontender without obvious deformity. No CVA tenderness. Laboratory Laboratory Tests Test 12/15/17 13:50 12/15/17 13:56 12/15/17 20:20 12/16/17 02:30 White Blood Count 20.3 23.1 Red Blood Count 3.01 2.81 Hemoglobin 9.8 8.8 Hematocrit 28.1 25.9 Mean Corpuscular Volume 93.1 92.1 Mean Corpuscular Hemoglobin 32.6 31.2 Mean Corpuscular Hemoglobin Concent 35.0 33.9 Red Cell Distribution Width 13.4 13.2 Platelet Count 479 451 Mean Platelet Volume 7.4 7.7 Neutrophils (%) (Auto) 90.8 88.0 Lymphocytes (%) (Auto) 3.5 4.5 Monocytes (%) (Auto) 4.8 4.7 Eosinophils (%) (Auto) 0.4 2.5 Basophils (%) (Auto) 0.5 0.3 Neutrophils # (Auto) 18.4 20.3 Lymphocytes # (Auto) 0.7 1.0 Monocytes # (Auto) 1.0 1.1 Eosinophils # (Auto) 0.1 0.6 Basophils # (Auto) 0.1 0.1 CBC Comment DIFF FINAL DIFF FINAL Differential Comment Prothrombin Time 11.0 Prothromb Time International Ratio 1.1 Activated Partial Thromboplast Time 31.5 Blood Urea Nitrogen 42 16 Creatinine 4.84 2.64 Random Glucose 128 99 Calcium Level 9.7 8.7 Sodium Level 137 140 Potassium Level 3.8 3.6 Chloride Level 100 99 Carbon Dioxide Level 21.3 29.7 Anion Gap 16 11 Estimat Glomerular Filtration Rate 9 18 Troponin I 0.02 0.02 0.06 Lactic Acid Level 1.5 Date/Time Source Procedure Growth Status 12/15/17 13:55 Blood Peripheral Aerobic Blood Culture Pending Received 12/15/17 13:55 Blood Peripheral Anaerobic Blood Culture Pending Received Result Diagram: 12/16/17 0230 12/16/17 0230 Assessment and Plan Problem List: (1) ESRD (end stage renal disease) on dialysis ICD Codes: N18.6 - End stage renal disease; Z99.2 - Dependence on renal dialysis Plan: Continue dialysis TTS. She was dialyzed yesterday. Monitor fluid and electrolytes. (2) Chest pain ICD Codes: R07.9 - Chest pain, unspecified Plan: Cardiac vs other causes. Leukocytosis is noted. Management per hospitalist. Consider echocardiogram. (3) Leukocytosis ICD Codes: D72.829 - Elevated white blood cell count, unspecified Plan: Etiology is unclear. She has been started on Zosyn. (4) Anemia of renal disease ICD Codes: D63.1 - Anemia in chronic kidney disease Plan: Hemoglobin is lower today. Rule out bleeding. Epogen given at dialysis. (5) Essential (primary) hypertension ICD Codes: I10 - Essential (primary) hypertension Plan: Restart her home medications. Monitor. Assessment and Plan Thanks for the consult. Hao Berrios MD Dec 16, 2017 08:59
[2017-12-16] MEDS: SODIUM CHLORIDE 0.9% FLUSH 10 ML FLUSH IV FLUSH SCH ×2 (09:00→21:10)
[2017-12-16] MEDS: DOCUSATE SODIUM 50 MG/SENNA 8.6 MG TAB PO SCH ×2 (09:00→21:00)
--- NOTE | 2017-12-16 10:30 | HHI.PR ---
Subjective Remarks Follow up chest pain, leukocytosis. Patient states that she feels much better today. Denies chest pain, dyspnea, nausea, vomiting. Objective Vitals Vital Signs Date Time Temp Pulse Resp B/P (MAP) Pulse Ox O2 Delivery O2 Flow Rate FiO2 12/16/17 08:25 98.2 88 18 155/52 (86) 98 12/16/17 06:35 21 12/16/17 04:10 98.0 78 17 128/64 (85) 94 12/15/17 23:37 98.0 78 17 132/62 (85) 95 12/15/17 20:59 98.3 90 18 136/64 (88) 95 12/15/17 20:12 97 3.00 12/15/17 18:46 12/15/17 16:10 75 16 134/63 (86) 97 Room Air 12/15/17 13:35 100.3 86 18 112/54 (73) 95 Room Air I/O 12/15/17 12/15/17 12/15/17 12/16/17 12/16/17 12/16/17 07:00 15:00 23:00 07:00 15:00 23:00 Output Total 1500 ml Balance -1500 ml Output Hemodialysis 1500 ml Result Diagram: 12/16/17 0230 12/16/17 0230 Imaging Last Impressions Chest X-Ray 12/15/17 0000 Signed Impressions: CONCLUSION: Mild bilateral atelectasis as above. Otherwise negative. Objective Remarks General: No acute distress. Heart: Regular rate and rhythm. No murmur. Lungs: Diminished breath sounds throughout. Mild crackles in the bases. Breathing is nonlabored. Abdomen: Soft, nontender, nondistended. Extremities: No lower extremity edema. Psych: Alert and oriented. Neuro: Normal speech. No focal deficits noted. Procedures None Urinary Catheter: No Vascular Central Line Catheter: No A/P Assessment and Plan 1. Chest pain: Uncertain etiology. Troponin increased only to 0.06, and is now trending down again. Will check nuclear stress test. 2. Leukocytosis: Uncertain etiology. Possibly due to infection, respiratory source. Continue empiric Zosyn. Blood cultures pending. 3. End-stage renal disease: Hemodialysis per nephrology, Sunday/Sunday/ Sunday. 4. DVT prophylaxis: Heparin. 5. Anemia: Likely secondary to end-stage renal disease. Monitor labs. Alexandru Prince MD Dec 16, 2017 10:30
--- NOTE | 2017-12-16 17:00 | EKG ---
Date Performed: 12/15/2017 Time Performed: 13:39:41 PTAGE: 77 years EKG: Sinus rhythm SLIGHT J POINT ELEVATION ANTEROLATERALLY AND IN LEAD II WHICH IS MOST LIKELY EARLY REPOLARIZATION VS PERICARDITIS Compared to previous tracing, the findings are new. Clinical correlation and follow-up tracing is recommended NORMAL ECG PREVIOUS TRACING : 09/08/2016 15.04 DOCTOR: Simon Curiel Interpretating Date/Time 12/17/2017 07:02:09
--- NOTE | 2017-12-16 17:02 | EKG ---
Date Performed: 12/15/2017 Time Performed: 20:11:38 PTAGE: 77 years EKG: Sinus rhythm . Lead(s) unsuitable for analysis: V5 Inferior ST elevation suggests early repolarization Pericarditi s is another consideration Repeat tracing since V5 is missing Borderline ECG NO PREVIOUS TRACING DOCTOR: Simon Curiel Interpretating Date/Time 12/16/2017 17:00:35
--- NOTE | 2017-12-16 17:02 | EKG ---
Date Performed: 12/15/2017 Time Performed: 23:42:48 PTAGE: 77 years EKG: Sinus rhythm J POINT ELEVATIONS SEEN MOST PROMINENTLY IN LEAD II AND SLIGHTLY ANTEROLATERALLY, MOST LIKELY EARLY REPOLARIZATION VERSUS PERICARDITIS IS ANOTHER POSSIBLITY Compared to previous tracing, slight J-point elevation anterolaterally is less prominent NORMAL ECG PREVIOUS TRACING : 12/15/2017 20.11 DOCTOR: Simon Curiel Interpretating Date/Time 12/16/2017 17:01:58
[2017-12-16] MEDS: PIPERACIL-TAZO 2.25 GM PREMIX 50 ML IV SCH (18:45)
[2017-12-17] VITALS (10 sets, daily range): BP systolic 135–166; BP diastolic 60–72; PULSE 53–100; RESP 16–20; TEMP 98.3–99.9; O2SAT 92–97
[2017-12-17 01:33] LABS: AMORPHOUS SEDIMENT, URINE RARE; BILIRUBIN, URINE NEG (NEG); BLOOD, URINE MOD (NEG); GLUCOSE,URINE NEG (NEG); KETONE, URINE NEG (NEG); MUCUS URINE FEW /lpf (OCC); NITRITE,URINE NEG (NEG); PH, URINE 8.5 (5.0-8.5); SQUAMOUS EPITHELIAL CELL URINE 3 /hpf (0-5); URINE COLOR YELLOW (YELLW/STRAW); URINE LEUKOCYTE ESTERASE NEG (NEG)
[2017-12-17] MEDS: HEPARIN SODIUM - SQ 10,000 UNITS/ML VIAL SQ SCH ×3 (02:15→18:28)
[2017-12-17] MEDS: PIPERACIL-TAZO 2.25 GM PREMIX 50 ML IV SCH ×2 (05:19→18:28)
--- NOTE | 2017-12-17 08:52 | HHI.PR ---
Subjective Remarks Follow up chest pain, leukocytosis. Patient states that she feels much better and wants to go home. She had nonproductive cough overnight, but that has resolved. No chest pain, dyspnea, nausea, vomiting, diarrhea, or constipation. Objective Vitals Vital Signs Date Time Temp Pulse Resp B/P (MAP) Pulse Ox O2 Delivery O2 Flow Rate FiO2 12/17/17 07:34 99.6 95 16 139/64 (89) 97 12/17/17 04:39 98.9 100 16 135/63 (87) 95 12/17/17 03:50 95 12/17/17 00:57 99.4 96 16 146/71 (96) 95 12/17/17 00:00 96 12/16/17 20:20 99.5 114 16 143/48 (79) 93 12/16/17 20:00 103 12/16/17 17:14 97.9 68 20 138/60 (86) 96 12/16/17 17:00 111 12/16/17 12:14 98.2 80 18 148/60 (89) 95 I/O 12/16/17 12/16/17 12/16/17 12/17/17 12/17/17 12/17/17 07:00 15:00 23:00 07:00 15:00 23:00 Intake Total 480 ml 240 ml Balance 480 ml 240 ml Intake Oral 480 ml 240 ml # Voids 1 2 Result Diagram: 12/16/17 0230 12/16/17 0230 Imaging Last Impressions Chest X-Ray 12/15/17 0000 Signed Impressions: CONCLUSION: Mild bilateral atelectasis as above. Otherwise negative. Objective Remarks General: No acute distress. Heart: Regular rate and rhythm. No murmur. Lungs: Diminished breath sounds throughout. Breathing is nonlabored. Abdomen: Soft, nontender, nondistended. Extremities: No lower extremity edema. Psych: Alert and oriented. Neuro: Normal speech. No focal deficits noted. Procedures None Urinary Catheter: No Vascular Central Line Catheter: No A/P Assessment and Plan 1. Chest pain: Uncertain etiology. Troponin increased only to 0.06, and is now trending down again. Lexiscan ordered. 2. Leukocytosis: Uncertain etiology. Possibly due to infection, respiratory source. Continue empiric Zosyn. Blood cultures are negative so far. Repeat labs are pending. 3. End-stage renal disease: Hemodialysis per nephrology, Sunday/Sunday/ Sunday. 4. DVT prophylaxis: Heparin. 5. Anemia: Likely secondary to end-stage renal disease. Monitor labs. Discharge Planning Possible discharge today pending stress test and labs. Alexandru Prince MD Dec 17, 2017 08:52
[2017-12-17] MEDS: DOCUSATE SODIUM 50 MG/SENNA 8.6 MG TAB PO SCH ×2 (09:00→20:32)
[2017-12-17] MEDS ORDERED: INFLUENZA VIRUS VACCINE (QUADRIVALENT) 0.5 ML SYR IM ONE (10:00)
[2017-12-17] MEDS: SODIUM CHLORIDE 0.9% FLUSH 10 ML FLUSH IV FLUSH SCH ×2 (10:01→20:33)
[2017-12-17 11:01] LABS: BASOPHIL # 0.1 TH/MM3 (0-0.2); BASOPHIL % 0.6 % (0.0-2.0); EOSINOPHIL # 0.6 TH/MM3 (0-0.4); HEMATOCRIT 26.9 % (35.0-46.0); HEMOGLOBIN 8.9 GM/DL (11.6-15.3); LYMPH % 4.3 % (9.0-44.0); LYMPHOCYTE # 0.9 TH/MM3 (1.0-4.8); MEAN CELL VOLUME 93.8 FL (80.0-100.0); MEAN CORPUSCULAR HEMOGLOBIN 30.9 PG (27.0-34.0); MEAN PLATELET VOLUME 7.7 FL (7.0-11.0); MONO % 3.6 % (0.0-8.0); MONOCYTE # 0.8 TH/MM3 (0-0.9); NEUT % 88.5 % (16.0-70.0); PLATELET COUNT 507 TH/MM3 (150-450); RED BLOOD COUNT 2.87 MIL/MM3 (4.00-5.30); RED CELL DISTRIBUTION WIDTH 13.7 % (11.6-17.2); WHITE BLOOD COUNT 21.5 TH/MM3 (4.0-11.0)
[2017-12-17 11:43] LABS: BICARBONATE 24.8 MEQ/L (21.0-32.0); CALCIUM 9.1 MG/DL (8.5-10.1); CREATININE 4.97 MG/DL (0.50-1.00)
[2017-12-17] MEDS ORDERED: REGADENOSON INJ 0.4 MG/5 ML SYR ONE (11:59)
--- NOTE | 2017-12-17 13:49 | HHI.NPPN ---
Subjective History of Present Illness 77-year-old female with ESRD on Sunday, and Sunday sent here for further evaluation as she was not feeling well Interval History Noted to have high WBC count Additional Remarks Cultures have been negative Review of Systems General Constitutional: Fatigue Objective Data Data Vital Signs Date Time Temp Pulse Resp B/P (MAP) Pulse Ox O2 Delivery O2 Flow Rate FiO2 12/17/17 13:31 98.5 93 16 164/71 (102) 96 12/17/17 07:34 99.6 95 16 139/64 (89) 97 12/17/17 04:39 98.9 100 16 135/63 (87) 95 12/17/17 03:50 95 12/17/17 00:57 99.4 96 16 146/71 (96) 95 12/17/17 00:00 96 12/16/17 20:20 99.5 114 16 143/48 (79) 93 12/16/17 20:00 103 12/16/17 17:14 97.9 68 20 138/60 (86) 96 12/16/17 17:00 111 -: 12/17/17 1020 12/17/17 1020 Microbiology 12/17/17 Legionella Antigen - Final, Complete PRESUMPTIVE NEGATIVE FOR LEGIONELLA P... 12/17/17 Streptococcus pneumoniae Antigen (M - Final, Complete PRESUMPTIVE NEGATIVE FOR STREPTOCOCCU... Physical Exam General Appearance: Well Developed, Well Nourished Neck Neck Exam: Neck Supple Pulmonary Resp Exam: Clear Bilaterally, Breath Sounds Equal Cardiology CV Exam: Regular, Normal Sinus Rhythm Gastrointestinal/Abdomen GI Exam: Soft, Non-Tender, Bowel Sounds Present Extremeties Extremities Exam: No Edema Assessment/Plan Problem List: (1) ESRD (end stage renal disease) on dialysis ICD Codes: N18.6 - End stage renal disease; Z99.2 - Dependence on renal dialysis Plan: Continue dialysis TTS. She was dialyzed Sunday Monitor fluid and electrolytes. (2) Chest pain ICD Codes: R07.9 - Chest pain, unspecified Plan: Cardiac vs other causes. Leukocytosis is noted. Management per hospitalist. Consider echocardiogram. (3) Leukocytosis ICD Codes: D72.829 - Elevated white blood cell count, unspecified Plan: Etiology is unclear. She has been started on Zosyn. (4) Anemia of renal disease ICD Codes: D63.1 - Anemia in chronic kidney disease Plan: Follow hemoglobin (5) Essential (primary) hypertension ICD Codes: I10 - Essential (primary) hypertension Plan: Monitor. Barbara Benitez MD Dec 17, 2017 13:49
--- NOTE | 2017-12-17 13:50 | RADRPT ---
EXAM DATE: 12/17/2017 1:17 PM EDT AGE/SEX: 77 years / Female INDICATIONS:Angina. . Chest pain. CLINICAL DATA: This is the patient's initial encounter. Patient reports that signs and symptoms have been present for 1 day and indicates a pain score of 8/10. MEDICAL/SURGICAL HISTORY: Hypercholesterolemia. Hypertension. Tubal ligation. COMPARISON: No prior [place] exams available for comparison. DOSE: 8.5 mCi Tc 99m Myoview at rest 27.2 mCi [id number] at stress 0.4 mg Lexiscan STRESS SYMPTOMS: None. EJECTION FRACTION: 62 % TECHNIQUE: The patient underwent pharmacologic stress with infusion of prescribed dose. Continuous ECG tracing was monitored during stress. Gated SPECT imaging was performed after stress and conventi onal SPECT imaging was performed at rest. The examination was performed on a SPECT/CT scanner, both attenuation and non-corrected datasets were reviewed. FINDINGS: Distribution: The maximum perfused segment at stress is in the septal wall. Perfusion Study: No reversible perfusion defect is identified. There is a small area of mild fixed decreased perfusion involving the anterior wall of the distal left ventricle. Gated Study: There are intact wall motion and wall thickening without hypokinetic or dyskinetic segm ents. The ejection fraction is calculated at 62%. RISK CATEGORY: Low (<1% Annual Motality Rate) CONCLUSION: 1. No reversible perfusion defect is identified to suggest stress-induced ischemia. 2. Normal left ventricle wall motion and ejection fraction. Electronically signed by: Negrito Arguello MD 12/17/2017 1:49 PM EDT
[2017-12-18] VITALS: PULSE 94
[2017-12-18] MEDS: HEPARIN SODIUM - SQ 10,000 UNITS/ML VIAL SQ SCH ×3 (02:00→19:37)
[2017-12-18 03:43] VITALS: BP 136/71; PULSE 97; RESP 17; TEMP 99.4; O2SAT 92
[2017-12-18] MEDS: PIPERACIL-TAZO 2.25 GM PREMIX 50 ML IV SCH (06:07)
[2017-12-18 07:27] VITALS: BP 148/67; PULSE 89; RESP 18; TEMP 98.5; O2SAT 95
[2017-12-18] MEDS: DOCUSATE SODIUM 50 MG/SENNA 8.6 MG TAB PO SCH ×2 (09:00→19:36)
[2017-12-18 11:15] LABS: AUTOMATED NEUTROPHIL # 17.9 TH/MM3 (1.8-7.7); BASOPHIL # 0.2 TH/MM3 (0-0.2); BASOPHIL % 0.8 % (0.0-2.0); EOSINOPHIL # 0.8 TH/MM3 (0-0.4); EOSINOPHIL % 3.6 % (0.0-4.0); HEMATOCRIT 26.7 % (35.0-46.0); HEMOGLOBIN 8.7 GM/DL (11.6-15.3); LYMPH % 5.6 % (9.0-44.0); LYMPHOCYTE # 1.2 TH/MM3 (1.0-4.8); MEAN CELL VOLUME 94.1 FL (80.0-100.0); MEAN CORPUSCULAR HEMOGLOBIN 30.8 PG (27.0-34.0); MEAN CORPUSCULAR HGB CONC 32.7 % (32.0-36.0); MEAN PLATELET VOLUME 7.8 FL (7.0-11.0); MONO % 3.7 % (0.0-8.0); MONOCYTE # 0.8 TH/MM3 (0-0.9); NEUT % 86.3 % (16.0-70.0); PLATELET COUNT 502 TH/MM3 (150-450); RED BLOOD COUNT 2.84 MIL/MM3 (4.00-5.30); RED CELL DISTRIBUTION WIDTH 13.7 % (11.6-17.2); WHITE BLOOD COUNT 20.8 TH/MM3 (4.0-11.0)
[2017-12-18] MEDS: SODIUM CHLORIDE 0.9% FLUSH 10 ML FLUSH IV FLUSH SCH ×2 (11:32→19:37)
[2017-12-18 12:04] LABS: BICARBONATE 22.7 MEQ/L (21.0-32.0); CALCIUM 9.2 MG/DL (8.5-10.1); CREATININE 6.3 MG/DL (0.50-1.00)
[2017-12-18 12:11] VITALS: BP 162/70; PULSE 86; RESP 16; TEMP 97.8; O2SAT 96
--- NOTE | 2017-12-18 12:52 | HHI.NPPN ---
Subjective History of Present Illness 77-year-old female with ESRD on Sunday, and Sunday sent here for further evaluation as she was not feeling well Additional Remarks Cultures have been negative Review of Systems General Constitutional: Fatigue Objective Data Data 12/18/17 12/19/17 19:00 07:00 Intake Total 240 ml Balance 240 ml Intake Oral 240 ml # Voids 1 Vital Signs Date Time Temp Pulse Resp B/P (MAP) Pulse Ox O2 Delivery O2 Flow Rate FiO2 12/18/17 12:11 97.8 86 16 162/70 (100) 96 12/18/17 07:27 98.5 89 18 148/67 (94) 95 12/18/17 03:43 99.4 97 17 136/71 (92) 92 12/18/17 00:00 94 12/17/17 23:33 99.9 53 16 166/72 (103) 95 12/17/17 20:36 98.3 93 16 150/66 (94) 92 12/17/17 20:00 90 12/17/17 15:24 99.1 99 20 157/60 (92) 94 12/17/17 13:31 98.5 93 16 164/71 (102) 96 -: 12/18/17 1040 12/18/17 1040 Physical Exam General Appearance: Well Developed, Well Nourished Neck Neck Exam: Neck Supple Pulmonary Resp Exam: Clear Bilaterally, Breath Sounds Equal Cardiology CV Exam: Regular, Normal Sinus Rhythm Gastrointestinal/Abdomen GI Exam: Soft, Non-Tender, Bowel Sounds Present Extremeties Extremities Exam: No Edema Assessment/Plan Problem List: (1) ESRD (end stage renal disease) on dialysis ICD Codes: N18.6 - End stage renal disease; Z99.2 - Dependence on renal dialysis Plan: Continue dialysis TTS. She was dialyzed Sunday due today Lexiscan negative Leukocytosis of uncertain etiology Monitor fluid and electrolytes. 1715 pm seen during dialysis UF 1.5L as tolerated (2) Chest pain ICD Codes: R07.9 - Chest pain, unspecified Plan: Cardiac vs other causes. Leukocytosis is noted. Management per hospitalist. echocardiogram 55-60% Lexiscan neg. (3) Leukocytosis ICD Codes: D72.829 - Elevated white blood cell count, unspecified Plan: Etiology is unclear. She has been started on Zosyn. (4) Anemia of renal disease ICD Codes: D63.1 - Anemia in chronic kidney disease Plan: Follow hemoglobin (5) Essential (primary) hypertension ICD Codes: I10 - Essential (primary) hypertension Plan: Monitor. Barbara Benitez MD Dec 18, 2017 12:52
[2017-12-18] MEDS ORDERED: POTASSIUM CHLORIDE 20 MEQ CONTROLLED RELEASE TAB PO ONE (13:00)
--- NOTE | 2017-12-18 15:56 | ECHRPT ---
Indication: chest pain CONCLUSIONS The left ventricular systolic function is normal with an estimated ejection fraction in the range of 55-60%. Trace mitral valve regurgitation. There is trace tricuspid valve regurgitation. Trivial pulmonary valve regurgitation. BP: / HR: Rhythm: MEASUREMENTS (Male / Female) Normal Values Technical Quality: 2D ECHO LV Diastolic Diameter PLAX 4.7 cm 4.2 - 5.9 / 3.9 - 5.3 cm LV Systolic Diameter PLAX 3.2 cm IVS Diastolic Thickness 1.1 cm 0.6 - 1.0 / 0.6 - 0.9 cm LVPW Diastolic Thickness 0.7 cm 0.6 - 1.0 / 0.6 - 0.9 cm LV Relative Wall Thickness 0.4 RV Internal Dim ED PLAX 1.9 cm DOPPLER AV Peak Velocity 243.0 cm/s AV Peak Gradient 23.6 mmHg LVOT Peak Velocity 116.0 cm/s LVOT Peak Gradient 5.4 mmHg Mitral E Point Velocity 87.6 cm/s Mitral A Point Velocity 88.2 cm/s Mitral E to A Ratio 1.0 TR Peak Velocity 239.0 cm/s TR Peak Gradient 22.8 mmHg Right Atrial Pressure 5.0 mmHg Pulmonary Artery Systolic Pressu 27.8 mmHg Right Ventricular Systolic Press 27.8 mmHg FINDINGS LEFT VENTRICLE Normal left ventricular size. Wall thickness is normal. The left ventricular systolic function is normal with an estimated ejection fraction in the range of 55-60%. No regional wall motion abnormalities are present. RIGHT VENTRICLE Normal right ventricular size and systolic function. LEFT ATRIUM The left atrial size is normal. RIGHT ATRIUM The right atrial size is normal. ATRIAL SEPTUM Normal atrial septal thickness AORTA The aortic root and proximal ascending aorta are normal in size on limited imaging. MITRAL VALVE Structurally normal mitral valve. Mild mitral annular calcification. Trace mitral valve regurgitation. No mitral valve stenosis. AORTIC VALVE Aortic valve sclerosis is present. No aortic valve regurgitation. TRICUSPID VALVE Structurally normal tricuspid valve. There is trace tricuspid valve regurgitation. No tricuspid valve stenosis. PULMONARY VALVE Trivial pulmonary valve regurgitation. VESSELS The inferior vena cava is normal in size. PERICARDIUM There is a trivial pericardial effusion present. Vimal Chavira DO (Electronically Signed) Final Date:18 December 2017 15:54
--- NOTE | 2017-12-18 16:07 | HHI.PR ---
Subjective Remarks Follow up on patient with chest pain and leukocytosis. Patient seen and examined. Patient states she feels good. She reports intermittent cough that "comes and goes" for unknown length of time without any sputum production. She denies any fever or chills. She denies any chest pain or shortness of breath. She denies any N/V or abdominal pain. She continues to make urine and denies any dysuria. She denies any diarrhea. +formed BM earlier today. She is witnessed ambulating in the unit with the aid of her walker without any difficulty. She is getting ready to go up for dialysis. Objective Vitals Vital Signs Date Time Temp Pulse Resp B/P (MAP) Pulse Ox O2 Delivery O2 Flow Rate FiO2 12/18/17 12:11 97.8 86 16 162/70 (100) 96 12/18/17 07:27 98.5 89 18 148/67 (94) 95 12/18/17 03:43 99.4 97 17 136/71 (92) 92 12/18/17 00:00 94 12/17/17 23:33 99.9 53 16 166/72 (103) 95 12/17/17 20:36 98.3 93 16 150/66 (94) 92 12/17/17 20:00 90 I/O 12/17/17 12/17/17 12/17/17 12/18/17 12/18/17 12/18/17 06:59 14:59 22:59 06:59 14:59 22:59 Intake Total 240 ml 240 ml 240 ml Balance 240 ml 240 ml 240 ml Intake Oral 240 ml 240 ml 240 ml # Voids 2 1 3 2 Result Diagram: 12/18/17 1040 12/18/17 1040 Imaging Last Impressions Myocardial Perfusion Scan Nuc Med 12/17/17 0000 Signed Impressions: CONCLUSION: 1. No reversible perfusion defect is identified to suggest stress-induced isch emia. 2. Normal left ventricle wall motion and ejection fraction. Chest X-Ray 12/15/17 0000 Signed Impressions: CONCLUSION: Mild bilateral atelectasis as above. Otherwise negative. Objective Remarks GENERAL: This is a well-nourished, well-developed female patient, in no apparent distress. Awake and alert. Appears comfortable. SKIN: Cool and dry. No generalized rash. HEAD: Atraumatic. Normocephalic. No temporal or scalp tenderness. EYES: Pupils equal round and reactive. Extraocular motions intact. No scleral icterus. No injection or drainage. ENT: Nose without bleeding or purulent drainage. Airway patent. MMM. NECK: Trachea midline. CARDIOVASCULAR: Regular rate and rhythm without murmurs, gallops, or rubs. RESPIRATORY: Nonlabored. Diminished but clear to auscultation. Breath sounds equal bilaterally. No wheezes, rales, or rhonchi. GASTROINTESTINAL: Abdomen soft, non-tender, nondistended. No hepato-splenomegaly , or palpable masses. No guarding. MUSCULOSKELETAL: Extremities without clubbing, cyanosis, or edema. No calf tenderness. NEUROLOGICAL: Awake and alert. Cranial nerves II through XII grossly intact. Motor and sensory grossly within normal limits. Able to move all extremities spontaneously. Normal speech. PSYCHIATRIC: Calm and cooperative. Procedures None A/P Assessment and Plan Chest pain, uncertain etiology No recurrence of chest pain Troponins increased to 0.06 but then trended down Lexiscan neg -await 2D echocardiogram results Leukocytosis, uncertain etiology Patient reports mild nonproductive intermittent cough Admission CXR showed mild bibasilar atelectasis White count dropped from 21.5 to 20.8 Patient is afebrile no dysuria, no diarrhea, no sputum production, no sores/open wounds -discontinue IV Zosyn and monitor off of systemic antibiotics -BCX with no growth x 3 days -legionella and s pneumoniae negative -repeat CXR and CBC in am -peripheral blood smear -Consult hematology, appreciate recommendations ESRD on HD -Nephrology following -for HD today Anemia, suspect 2/2 ESRD -hgb appear stable -Epogen per Nephrology -continue to monitor H/H as indicated Hypokalemia, mild, asymptomatic -po repletion ordered -repeat BMP in am to monitor response DVT prophylaxis -patient is on Heparin Discharge Planning Not ready for discharge. Pending improvement in leukocytosis and echocardiogram results. Alejandra Catherine Dec 18, 2017 16:07
[2017-12-18] MEDS: SODIUM CHLOR 0.9% 1000 ML INJ 1,000 ML OTHER PRN (18:30)
[2017-12-18] MEDS: GELATIN 12 MM/7 MM FOAM TOP PRN (18:30)
--- NOTE | 2017-12-18 18:58 | MB ---
cc: Chris Charles MD, Boon Y MD DATE: 12/18/2017 ATTENDING PHYSICIAN: Dr. Catherine REASON FOR CONSULTATION: Hematology is consulted to render an opinion regarding a patient with leukocytosis. HISTORY OF PRESENT ILLNESS: The patient is a 77-year-old female with multiple medical problems including end-stage renal disease on hemodialysis who presented to the hospital with chest pain after hemodialysis. On presentation, she was noted to have leukocytosis with a white blood cell count around 20,000. It trended up to 23,000 2 days ago, but trended back down to 20,000 today. She is a rather poor historian. She denies any fever or chills. She still has intermittent dry cough with occasional shortness of breath. She denies any nausea, vomiting, diarrhea or abdominal pain. She denies any dysuria. Denies any family history of hematologic disorder. PAST MEDICAL HISTORY: End-stage renal disease, hypertension, gout, hyperlipidemia, neuropathy, coronary artery disease, anemia. PAST SURGICAL HISTORY: Left arm AV fistula, tubal ligation. FAMILY HISTORY: Has two daughters and 2 sons, 2 brothers and 2 sisters all healthy. SOCIAL HISTORY: Denies tobacco or alcohol use. ALLERGIES: ATORVASTATIN AND GEMFIBROZIL MEDICATIONS: Heparin, had a dose Zosyn and Lorraine-Colace. REVIEW OF SYSTEMS: CONSTITUTIONAL: As above. EYES: Negative. ENT: Negative. CARDIOVASCULAR: Denied chest pressure or palpitation at this time. RESPIRATORY: As above. GASTROINTESTINAL: Negative. GENITOURINARY: As above. MUSCULOSKELETAL: Negative. ENDOCRINE: Negative. HEMATOLOGIC: As above. DERMATOLOGY: Negative. PSYCHIATRIC: Negative. NEUROLOGIC: Negative. PHYSICAL EXAMINATION: VITAL SIGNS: Temperature 97.8, blood pressure 162/70, O2 saturation 96% on room air. GENERAL: She is alert, oriented x3 in no acute distress. HEENT: Atraumatic, normocephalic. Pupils are equal, round, reactive to light. Extraocular muscles are intact. No scleral icterus. Oropharynx - No thrush. No mucositis. NECK: No thyromegaly. No palpable mass. LYMPHATIC: No palpable cervical, clavicular, axillary or inguinal lymph node. CARDIOVASCULAR: Regular S1, S2, no murmur. LUNGS: Clear to auscultation anteriorly. ABDOMEN: Soft, nontender. I could not palpate liver or spleen. EXTREMITIES: No cyanosis, no significant edema, no calf tenderness. SKIN: No rash or petechiae. NEUROLOGIC: Nonfocal. LABORATORY DATA: WBC 20.8, hemoglobin 8.7, platelet count 502, RDW 13.7, MCV 94.1. ASSESSMENT: 1. Leukocytosis with predominant neutrophilia of unknown chronicity. Her white blood cell count was normal back in 2013. I could not palpate any splenomegaly. I suspect the leukocytosis is likely a reactive leukemoid reaction. She also has mild thrombocytosis, again likely due to a reactive process. I am going to check a sedimentation rate and C-reactive protein. We will also have pathology review the peripheral smear. I recommend to continue to monitor CBC for now. She can followup in hematology clinic after discharge to monitor CBC. If she has persistent leukocytosis, then we could proceed with checking a FIONA-2 mutation, BCR/ABL and flow cytometry. Could also consider bone marrow biopsy at that time. 2. Chronic anemia due to end-stage renal disease. She has been getting Epogen. We will check an iron study. 3. End-stage renal disease on hemodialysis. 4. Chest pain, etiology unclear. The symptoms have improved. RECOMMENDATIONS: 1. Check a sedimentation rate and C-reactive protein. 2. Have pathology review peripheral smear. 3. She can followup at hematology clinic and proceed with further workup at that time if she has persistent leukocytosis. She can be discharged from a hematology standpoint. Thank you, Dr. Catherine, for asking me to see this patient. MD ARESNIO Gonzalez/ , 06:10 PM , 06:57 PM FARHEEN
[2017-12-18 20:00] VITALS: BP 150/66; PULSE 82; RESP 20; TEMP 99.1; O2SAT 96
[2017-12-18 20:51] VITALS: BP 138/64; PULSE 95; RESP 16; TEMP 99.7; O2SAT 93
[2017-12-19] VITALS (7 sets, daily range): BP systolic 109–153; BP diastolic 52–70; PULSE 79–99; RESP 16–20; TEMP 97.9–99.6; O2SAT 95–98
[2017-12-19] MEDS: HEPARIN SODIUM - SQ 10,000 UNITS/ML VIAL SQ SCH ×2 (03:30→09:31)
[2017-12-19 07:13] LABS: AUTOMATED NEUTROPHIL # 13.3 TH/MM3 (1.8-7.7); BASOPHIL # 0.1 TH/MM3 (0-0.2); BASOPHIL % 0.8 % (0.0-2.0); EOSINOPHIL # 0.9 TH/MM3 (0-0.4); EOSINOPHIL % 5.1 % (0.0-4.0); HEMATOCRIT 30.6 % (35.0-46.0); LYMPH % 11.7 % (9.0-44.0); MEAN CELL VOLUME 94.9 FL (80.0-100.0); MEAN CORPUSCULAR HGB CONC 32.6 % (32.0-36.0); MEAN PLATELET VOLUME 7.9 FL (7.0-11.0); MONO % 5.3 % (0.0-8.0); MONOCYTE # 0.9 TH/MM3 (0-0.9); NEUT % 77.1 % (16.0-70.0); PLATELET COUNT 600 TH/MM3 (150-450); RED BLOOD COUNT 3.22 MIL/MM3 (4.00-5.30); RED CELL DISTRIBUTION WIDTH 13.6 % (11.6-17.2); WHITE BLOOD COUNT 17.2 TH/MM3 (4.0-11.0)
--- NOTE | 2017-12-19 07:36 | RADRPT ---
EXAM DATE: 12/19/2017 7:30 AM EDT AGE/SEX: 77 years / Female INDICATIONS: Cough. CLINICAL DATA: This is the patient's subsequent encounter. Patient reports that signs and symptoms h ave been present for 1 week and indicates a pain score of 0/10. MEDICAL/SURGICAL HISTORY: Hypertension. Hypercholesterolemia. neuropathy. CAD. renal disease Tubal ligation. COMPARISON: [facility] [place], CHEST SINGLE AP, 12/15/2017. . FINDINGS: Retrocardiac double density is likely hiatal hernia. Possibly mild atelectasis left lung base. Right lung is clear. No effusion present. Heart size and pulmonary vascularity are satisfactory. CONCLUSION: Stable chest. Mild parenchymal opacity at the left lung base Electronically signed by: Negrito Torres MD 12/19/2017 7:35 AM EDT
[2017-12-19 07:43] LABS: IRON (FE) 43 MCG/DL (50-170)
[2017-12-19 07:59] LABS: FERRITIN 3738 NG/ML (8-252); TOTAL IRON BINDING CAPACITY 148 MCG/DL (250-450)
[2017-12-19] MEDS: DOCUSATE SODIUM 50 MG/SENNA 8.6 MG TAB PO SCH (08:40)
[2017-12-19 08:44] LABS: BANDS 4 % (0-6); BASOPHILS 1 % (0-2); CORRECTED NUCLEATED RBC 1 /100 WBC (0-0); LYMPHOCYTES 9 % (9-44); MONOCYTES 2 % (0-8); MYELOCYTES 2 % (0-0); NEUTROPHIL # MANUAL DIFF 14.1 TH/MM3 (1.8-7.7); NUCLEATED RED BLOOD CELL 1 (0-0); POLYS (SEG NEUTROPHILS) 76 % (16-70)
[2017-12-19] MEDS: SODIUM CHLORIDE 0.9% FLUSH 10 ML FLUSH IV FLUSH SCH (09:31)
[2017-12-19] MEDS ORDERED: CEFUROXIME AXETIL 500 MG TAB PO SCH (10:15)
--- NOTE | 2017-12-19 11:09 | HHI.PR ---
Subjective Remarks Follow up on patient with chest pain and leukocytosis. Patient seen and examined. Patient denies any new medical complaints. Denies any fever or chills overnight. Continues to have dry intermittent cough that she states is unchanged. Denies any chest pain or shortness of breath. She denies any nausea , vomiting or abdominal pain. She states she is urinating without any difficulties. Denies any constipation or diarrhea. Objective Vitals Vital Signs Date Time Temp Pulse Resp B/P (MAP) Pulse Ox O2 Delivery O2 Flow Rate FiO2 12/19/17 08:35 79 12/19/17 07:54 98.4 85 18 153/70 (97) 98 12/19/17 04:29 98.0 82 16 116/53 (74) 12/19/17 04:00 98.8 81 18 109/52 (71) 97 12/19/17 00:00 99.6 95 18 127/60 (82) 95 12/18/17 20:51 99.7 95 16 138/64 (88) 93 12/18/17 20:00 99.1 82 20 150/66 (94) 96 12/18/17 12:11 97.8 86 16 162/70 (100) 96 I/O 12/18/17 12/18/17 12/18/17 12/19/17 12/19/17 12/19/17 07:00 15:00 23:00 07:00 15:00 23:00 Intake Total 240 ml 240 ml 540 ml Output Total 1500 ml Balance 240 ml 240 ml -1500 ml 540 ml Intake Oral 240 ml 240 ml 540 ml Output Hemodialysis 1500 ml # Voids 3 2 1 Result Diagram: 12/19/17 0636 12/18/17 1040 Imaging Last Impressions Chest X-Ray 12/19/17 0700 Signed Impressions: CONCLUSION: Stable chest. Mild parenchymal opacity at the left lung base Myocardial Perfusion Scan Nuc Med 12/17/17 0000 Signed Impressions: CONCLUSION: 1. No reversible perfusion defect is identified to suggest stress-induced isch emia. 2. Normal left ventricle wall motion and ejection fraction. Objective Remarks GENERAL: This is a well-nourished, well-developed female patient, in no apparent distress. Awake and alert. Appears comfortable. Witnessed ambulating in her room with aid of a walker. SKIN: Cool and dry. No generalized rash. HEAD: Atraumatic. Normocephalic. No temporal or scalp tenderness. EYES: Pupils equal round and reactive. Extraocular motions intact. No scleral icterus. No injection or drainage. ENT: Nose without bleeding or purulent drainage. Airway patent. MMM. NECK: Trachea midline. CARDIOVASCULAR: Regular rate and rhythm without murmurs, gallops, or rubs. RESPIRATORY: Nonlabored. Diminished but clear to auscultation. Breath sounds equal bilaterally. No wheezes, rales, or rhonchi. GASTROINTESTINAL: Abdomen soft, non-tender, nondistended. No hepato-splenomegaly , or palpable masses. No guarding. MUSCULOSKELETAL: Extremities without clubbing, cyanosis, or edema. No calf tenderness. NEUROLOGICAL: Awake and alert. Cranial nerves II through XII grossly intact. Motor and sensory grossly within normal limits. Able to move all extremities spontaneously. Normal speech. PSYCHIATRIC: Calm and cooperative. Procedures None A/P Assessment and Plan Chest pain, uncertain etiology No recurrence of chest pain Troponins increased to 0.06 but then trended down Lexiscan neg -2D echocardiogram with EF 55-60%, trace mitral and tricuspid valve regurgitation Leukocytosis, suspect PNA Patient reports mild nonproductive intermittent cough Admission CXR showed mild bibasilar atelectasis. Repeat chest x-ray this morning shows mild left parenchymal opacity, images reviewed by co legionella and s pneumoniae negative White count trending down, now 17.2 -Begin oral azithromycin and Ceftin -BCX with no growth x 3 days -peripheral blood smear pending -Hematology following, appreciate recommendations. Sedimentation and CRP ordered and both elevated, greater than 140 and 18 respectively. Ferritin 3738. Recommend patient follow-up with hematology clinic as outpatient for further workup. Cleared for discharge from hematology standpoint. ESRD on HD -Nephrology following -s/p HD yesterday Anemia, suspect 2/2 ESRD -hgb improved s/p Epogen yesterday with HD -Epogen per Nephrology -continue to monitor H/H as indicated Hypokalemia, mild, asymptomatic -po repletion given -repeat potassium level pending DVT prophylaxis -patient is on Heparin Discharge Planning Not ready for discharge. Pending improvement in leukocytosis and echocardiogram results. Alejandra Catherine Dec 19, 2017 11:08
[2017-12-19] MEDS ORDERED: CEPH500T PO (11:24)
[2017-12-19] MEDS ORDERED: AZIT250T3 PO (11:24)
--- NOTE | 2017-12-19 11:27 | HHI.DCPOC ---
Discharge Care Plan Diagnosis: (1) Community acquired pneumonia (2) Leukocytosis (3) Chest pain (4) ESRD (end stage renal disease) on dialysis (5) Anemia of renal disease (6) Essential (primary) hypertension (7) Hypokalemia Goals to Promote Your Health * To prevent worsening of your condition and complications * To maintain your health at the optimal level Directions to Meet Your Goals Take your medications as prescribed Follow your dietary instruction Follow activity as directed Keep your appointments as scheduled Take your immunizations and boosters as scheduled If your symptoms worsen call your PCP, if no PCP go to Urgent Care Center or Emergency Room Smoking is Dangerous to Your Health. Avoid second hand smoke Call the 24-hour hour crisis hotline for domestic abuse at Alejandra Catherine Dec 19, 2017 11:27
--- NOTE | 2017-12-19 11:28 | HHI.DS ---
Discharge Summary Admission Date Dec 18, 2017 at 15:43 Discharge Date: Dec 19, 2017 Admitting Diagnosis Procedures None Brief History - From Admission T CBC/BMP: 12/19/17 0636 12/18/17 1040 Discharge Instructions Follow up Referrals: Nephrology - 1 Week Oncology/Hematology - 1 Week with Chris Charles MD PCP Follow-up - 2-3 Days New Medications: Azithromycin (Azithromycin) 250 Mg Tab 500 MG PO DAILY for Infection, #4 TAB Continued Medications: Allopurinol (Allopurinol) 100 Mg Tab 100 MG PO DAILY for Gout, #30 TAB 0 Refills Amitriptyline (Amitriptyline) 75 Mg Tab 75 MG PO HS, TAB Amlodipine (Amlodipine) 10 Mg Tab 10 MG PO HS for Blood Pressure Management, #30 TAB 0 Refills B-Complex W/ C & Folic Acid (Nephro-Sixto) 1 Tab 1 TAB PO DAILY for Nutritional Supplement for 30 Days, #30 TAB 0 Refills Cephalexin (Cephalexin) 500 Mg Tab 500 MG PO Q12H for Infection for 5 Days, #10 TAB 0 Refills (This prescription has been renewed) Fish Oil-Cholecalciferol (Fish Oil + D3) 1,200-1,000 Mg-Unit Cap 1 CAP PO DAILY for Nutritional Supplement, #30 CAP 0 Refills Fluticasone Nasal [place] (Flonase Nasal [place]) 50 Mcg/Act [place] 50 MCG EACH NARE BID for Allergies, #1 BOTTLE 0 Refills Pravastatin (Pravastatin) 40 Mg Tab 40 MG PO DAILY for Cholesterol Management, #30 TAB 0 Refills Discontinued Medications: Clonidine (Clonidine) 0.1 Mg Tab 0.1 MG PO HS for Blood Pressure Management, #60 TAB 0 Refills Triamterene-Hydrochlorothiazide (Triamterene-Hydrochlorothiazide) 37.5-25 Mg Tab 1 TAB PO DAILY, #30 TAB 0 Refills Alejandra Catherine Dec 19, 2017 11:28
[2017-12-19] MEDS ORDERED: AZITHROMYCIN 250 MG TAB PO SCH (11:30)
--- NOTE | 2017-12-19 15:09 | HHI.DS ---
Discharge Summary Admission Date Dec 18, 2017 at 15:43 Discharge Date: Dec 19, 2017 Admitting Diagnosis Chest pain Anemia CAD ESRD on HD (1) Chest pain ICD Code: R07.9 - Chest pain, unspecified (2) Community acquired pneumonia ICD Code: J18.9 - Pneumonia, unspecified organism (3) Thrombocytosis ICD Code: D47.3 - Essential (hemorrhagic) thrombocythemia (4) Hypokalemia ICD Code: E87.6 - Hypokalemia (5) Anemia of renal disease ICD Code: D63.1 - Anemia in chronic kidney disease (6) ESRD (end stage renal disease) on dialysis ICD Code: N18.6 - End stage renal disease; Z99.2 - Dependence on renal dialysis (7) Essential (primary) hypertension ICD Code: I10 - Essential (primary) hypertension (8) Leukocytosis ICD Code: D72.829 - Elevated white blood cell count, unspecified Procedures None Brief History - From Admission This is a 77-year-old female with history of gout, hypertension, end-stage renal disease on hemodialysis every Sunday, and Sunday sent from [facility] dialysis for evaluation of chest pain before before dialysis. Patient is a poor historian and not very cooperative. Very history from [facility]/ED nurse/ ED physician, patient was about to get her dialysis when she clutched her anterior chest, almost fell forward and then clutched her anterior chest again which is suspicious for Hess's sign.. Because of this, the patient was sent from dialysis center to the hospital. Per patient, she had 10/10 chest pain but difficult to describe, pressure-like, not associated with any shortness of breath. She is chest pain-free at this point. No other complaints. Upon further probing, the patient endorses a cough for about a few weeks now, nonproductive, not associated with any shortness of breath or fever. CBC/BMP: 12/19/17 0636 12/19/17 1207 Significant Findings Laboratory Tests Test 12/17/17 01:15 12/17/17 10:20 12/18/17 10:40 12/19/17 06:36 Urine Protein 300 mg/dL (NEG-TRACE) Urine Occult Blood MOD (NEG) Urine RBC 171 /hpf (0-3) Urine WBC 8 /hpf (0-5) Urine Mucus FEW /lpf (OCC) White Blood Count 21.5 TH/MM3 (4.0-11.0) 20.8 TH/MM3 (4.0-11.0) 17.2 TH/MM3 (4.0-11.0) Red Blood Count 2.87 MIL/MM3 (4.00-5.30) 2.84 MIL/MM3 (4.00-5.30) 3.22 MIL/MM3 (4.00-5.30) Hemoglobin 8.9 GM/DL (11.6-15.3) 8.7 GM/DL (11.6-15.3) 10.0 GM/DL (11.6-15.3) Hematocrit 26.9 % (35.0-46.0) 26.7 % (35.0-46.0) 30.6 % (35.0-46.0) Platelet Count 507 TH/MM3 (150-450) 502 TH/MM3 (150-450) 600 TH/MM3 (150-450) Neutrophils (%) (Auto) 88.5 % (16.0-70.0) 86.3 % (16.0-70.0) 77.1 % (16.0-70.0) Lymphocytes (%) (Auto) 4.3 % (9.0-44.0) 5.6 % (9.0-44.0) Neutrophils # (Auto) 19.0 TH/MM3 (1.8-7.7) 17.9 TH/MM3 (1.8-7.7) 13.3 TH/MM3 (1.8-7.7) Lymphocytes # (Auto) 0.9 TH/MM3 (1.0-4.8) Eosinophils # (Auto) 0.6 TH/MM3 (0-0.4) 0.8 TH/MM3 (0-0.4) 0.9 TH/MM3 (0-0.4) Blood Urea Nitrogen 39 MG/DL (7-18) 49 MG/DL (7-18) Creatinine 4.97 MG/DL (0.50-1.00) 6.30 MG/DL (0.50-1.00) Potassium Level 3.3 MEQ/L (3.5-5.1) 3.4 MEQ/L (3.5-5.1) Estimat Glomerular Filtration Rate 8 ML/MIN (>89) 6 ML/MIN (>89) Eosinophils (%) (Auto) 5.1 % (0.0-4.0) Neutrophils % (Manual) 76 % (16-70) Eosinophils % 6 % (0-4) Neutrophils # (Manual) 14.1 TH/MM3 (1.8-7.7) Myelocytes 2 % (0-0) Nucleated Red Blood Cells 1 /100 WBC (0-0) Platelet Estimate HIGH (NORMAL) Erythrocyte Sedimentation Rate GREATER THAN 140 mm/hr Iron Level 43 MCG/DL (50-170) Total Iron Binding Capacity 148 MCG/DL (250-450) Ferritin 3738 NG/ML (8-252) C-Reactive Protein 18.00 MG/DL (0.00-0.30) Test 12/19/17 12:07 Imaging Last Impressions Chest X-Ray 12/19/17 0700 Signed Impressions: CONCLUSION: Stable chest. Mild parenchymal opacity at the left lung base Myocardial Perfusion Scan Nuc Med 12/17/17 0000 Signed Impressions: CONCLUSION: 1. No reversible perfusion defect is identified to suggest stress-induced isch emia. 2. Normal left ventricle wall motion and ejection fraction. PE at Discharge GENERAL: This is a well-nourished, well-developed female patient, in no apparent distress. Awake and alert. Appears comfortable. Witnessed ambulating in her room with aid of a walker. SKIN: Cool and dry. No generalized rash. HEAD: Atraumatic. Normocephalic. No temporal or scalp tenderness. EYES: Pupils equal round and reactive. Extraocular motions intact. No scleral icterus. No injection or drainage. ENT: Nose without bleeding or purulent drainage. Airway patent. MMM. NECK: Trachea midline. CARDIOVASCULAR: Regular rate and rhythm without murmurs, gallops, or rubs. RESPIRATORY: Nonlabored. Diminished but clear to auscultation. Breath sounds equal bilaterally. No wheezes, rales, or rhonchi. GASTROINTESTINAL: Abdomen soft, non-tender, nondistended. No hepato-splenomegaly , or palpable masses. No guarding. MUSCULOSKELETAL: Extremities without clubbing, cyanosis, or edema. No calf tenderness. NEUROLOGICAL: Awake and alert. Cranial nerves II through XII grossly intact. Motor and sensory grossly within normal limits. Able to move all extremities spontaneously. Normal speech. PSYCHIATRIC: Calm and cooperative. Pt update on day of discharge Follow up on patient with chest pain and leukocytosis. Patient seen and examined. Patient denies any new medical complaints. She states she feels well. Denies any fever or chills overnight. Continues to have dry intermittent cough that she states is unchanged. Denies any chest pain or shortness of breath. She denies any nausea, vomiting or abdominal pain. She states she is urinating without any difficulties. Denies any constipation or diarrhea. Hospital Course Patient was admitted with chest pain and leukocytosis with neutrophilia but no bandemia with low-grade fever and cough. Chest x-ray revealed mild bilateral atelectasis. Patient was started on IV Zosyn for community-acquired pneumonia. Patient was seen in consultation by nephrology to continue with hemodialysis treatment during her hospitalization. On 12/15, during dialysis, patient developed complaints of chest pain and Halicat was called. Patient was already undergoing ACS rule out which have been negative and repeat troponin and EKG was obtained. EKG did not show any changes. Her troponins did bump up to 0.06 but then trended down again. Nuclear stress test was ordered and showed no reversible perfusion defects to suggest stress-induced ischemia. 2D echocardiogram was obtained which revealed EF of 55-60%, trace mitral and tricuspid valve regurgitation. Patient had no further complaints of chest pain during her hospitalization. Despite treatment with IV Zosyn she continued to have significant leukocytosis with a white count hovering around 20,000. Peripheral smear was ordered and patient was seen in consultation by hematology who ordered a sed rate and CRP both of which were elevated. She was cleared for discharge from a hematology standpoint and was instructed to follow-up as an outpatient to continue with workup. Blood cultures failed to show any growth at 4 days. Patient underwent Legionella and Streptococcus pneumonia testing which was negative. Patient was monitored off of IV Zosyn without any significant fevers however repeat chest x-ray revealed opacity at the left lung base for which patient was started on oral azithromycin and Ceftin. Patient also had some mild hypokalemia which was treated with oral repletion. Patient was able to ambulate around the unit with the aid of a walker without any difficulties. Patient improved clinically and was cleared for discharge to home in stable condition. Pt Condition on Discharge: Stable Discharge Disposition: Discharge Home Discharge Time: > 30 minutes Discharge Instructions DIET: Follow Instructions for: Heart Healthy Diet, Renal Failure Diet Activities you can perform: Regular-No Restrictions Follow up Referrals: Nephrology - 1 Week Oncology/Hematology - 1 Week with Chris Charles MD PCP Follow-up - 2-3 Days New Medications: Azithromycin (Azithromycin) 250 Mg Tab 500 MG PO DAILY for Infection, #4 TAB Continued Medications: Allopurinol (Allopurinol) 100 Mg Tab 100 MG PO DAILY for Gout, #30 TAB 0 Refills Amitriptyline (Amitriptyline) 75 Mg Tab 75 MG PO HS, TAB Amlodipine (Amlodipine) 10 Mg Tab 10 MG PO HS for Blood Pressure Management, #30 TAB 0 Refills B-Complex W/ C & Folic Acid (Nephro-Sixto) 1 Tab 1 TAB PO DAILY for Nutritional Supplement for 30 Days, #30 TAB 0 Refills Cephalexin (Cephalexin) 500 Mg Tab 500 MG PO Q12H for Infection for 5 Days, #10 TAB 0 Refills (This prescription has been renewed) Fish Oil-Cholecalciferol (Fish Oil + D3) 1,200-1,000 Mg-Unit Cap 1 CAP PO DAILY for Nutritional Supplement, #30 CAP 0 Refills Fluticasone Nasal [place] (Flonase Nasal [place]) 50 Mcg/Act [place] 50 MCG EACH NARE BID for Allergies, #1 BOTTLE 0 Refills Pravastatin (Pravastatin) 40 Mg Tab 40 MG PO DAILY for Cholesterol Management, #30 TAB 0 Refills Discontinued Medications: Clonidine (Clonidine) 0.1 Mg Tab 0.1 MG PO HS for Blood Pressure Management, #60 TAB 0 Refills Triamterene-Hydrochlorothiazide (Triamterene-Hydrochlorothiazide) 37.5-25 Mg Tab 1 TAB PO DAILY, #30 TAB 0 Refills Alejandra Catherine Dec 19, 2017 15:09
--- NOTE | 2017-12-19 15:20 | PD.ONC.PN ---
Subjective Subjective Remarks Afebrile Patient reports she is overall feeling okay No further chest pain No acute complaints Objective Data Date Time Temp Pulse Resp B/P (MAP) Pulse Ox O2 Delivery O2 Flow Rate FiO2 12/19/17 12:00 97.9 97 20 124/58 (80) 95 12/19/17 11:07 99 12/19/17 08:35 79 12/19/17 07:54 98.4 85 18 153/70 (97) 98 12/19/17 04:29 98.0 82 16 116/53 (74) 12/19/17 04:00 98.8 81 18 109/52 (71) 97 12/19/17 00:00 99.6 95 18 127/60 (82) 95 12/18/17 20:51 99.7 95 16 138/64 (88) 93 12/18/17 20:00 99.1 82 20 150/66 (94) 96 12/19/17 12/19/17 12/19/17 07:00 15:00 23:00 Intake Total 540 ml Balance 540 ml Result Diagram: 12/19/17 0636 12/19/17 1207 Laboratory Results Laboratory Tests Test 12/19/17 06:36 12/19/17 12:07 White Blood Count 17.2 TH/MM3 Red Blood Count 3.22 MIL/MM3 Hemoglobin 10.0 GM/DL Hematocrit 30.6 % Mean Corpuscular Volume 94.9 FL Mean Corpuscular Hemoglobin 31.0 PG Mean Corpuscular Hemoglobin Concent 32.6 % Red Cell Distribution Width 13.6 % Platelet Count 600 TH/MM3 Mean Platelet Volume 7.9 FL Neutrophils (%) (Auto) 77.1 % Lymphocytes (%) (Auto) 11.7 % Monocytes (%) (Auto) 5.3 % Eosinophils (%) (Auto) 5.1 % Basophils (%) (Auto) 0.8 % Neutrophils # (Auto) 13.3 TH/MM3 Lymphocytes # (Auto) 2.0 TH/MM3 Monocytes # (Auto) 0.9 TH/MM3 Eosinophils # (Auto) 0.9 TH/MM3 Basophils # (Auto) 0.1 TH/MM3 CBC Comment AUTO DIFF Differential Total Cells Counted 100 Neutrophils % (Manual) 76 % Band Neutrophils % 4 % Lymphocytes % 9 % Monocytes % 2 % Eosinophils % 6 % Basophils % 1 % Neutrophils # (Manual) 14.1 TH/MM3 Myelocytes 2 % Nucleated Red Blood Cells 1 /100 WBC Differential Comment FINAL DIFF MANUAL Platelet Estimate HIGH Platelet Morphology Comment NORMAL Erythrocyte Sedimentation Rate GREATER THAN 140 mm/hr Iron Level 43 MCG/DL Total Iron Binding Capacity 148 MCG/DL Percent Iron Saturation 29.0 % Ferritin 3738 NG/ML C-Reactive Protein 18.00 MG/DL Potassium Level 3.7 MEQ/L Culture Results Microbiology Date/Time Source Procedure Growth Status 12/17/17 01:15 Urine Clean Catch Legionella Antigen - Final PRESUMPTIVE NEGATIVE FOR LEGIONELLA P... Complete 12/17/17 01:15 Urine Clean Catch Streptococcus pneumoniae Antigen (M - Final PRESUMPTIVE NEGATIVE FOR STREPTOCOCCU... Complete Imaging Studies Last 24 hours Impressions Chest X-Ray 12/19/17 0700 Signed Impressions: CONCLUSION: Stable chest. Mild parenchymal opacity at the left lung base Administered Medications Medications (Trade) Dose Ordered Sig/Jennie Route PRN Reason Start Time Stop Time Status Last Admin Dose Admin Sodium Chloride (NS Flush) 2 ml BID IV FLUSH 12/15/17 21:00 12/19/17 09:31 Heparin Sodium (Porcine) (Heparin Inj) 5,000 units Q8H SQ 12/15/17 18:00 12/19/17 09:31 Senna/Docusate Sodium (Lorraine-Colace) 1 tab BID PO 12/15/17 21:00 12/18/17 19:36 Sodium Chloride 1,000 ml @ 0 mls/hr Q0M PRN OTHER For Prime & Rinse Back 12/15/17 16:37 12/18/17 18:30 Gelatin (Gelfoam 12 Mm/7 Mm Top) 1 foam UNSCH PRN TOP SEE LABEL COMMENTS 12/15/17 16:45 12/18/17 18:30 Cefuroxime Axetil (Ceftin) 500 mg Q12HR PO 12/19/17 10:15 12/24/17 10:14 12/19/17 12:25 Azithromycin (Zithromax) 500 mg DAILY PO 12/19/17 11:30 12/19/17 12:25 Objective Remarks GENERAL: Thin older female resting in bed in no obvious distress SKIN: Warm and dry. HEAD: Normocephalic. EYES: No scleral icterus. No injection or drainage. NECK: Supple, trachea midline. No JVD or lymphadenopathy. CARDIOVASCULAR: Regular rate and rhythm without murmurs. RESPIRATORY: Breath sounds equal bilaterally. No accessory muscle use. GASTROINTESTINAL: Abdomen soft, non-tender, nondistended. EXTREMITIES: No cyanosis, or edema. MUSCULOSKELETAL: Adequate muscle tone. NEUROLOGICAL: No obvious focal deficit. Awake, alert, and oriented x3. Assessment/Plan Problem List: (1) Leukocytosis ICD Codes: D72.829 - Elevated white blood cell count, unspecified Plan: -- This appears to likely be reactive as it is in the setting of thrombocytosis as well as an increased ESR and CRP. -- Leukocytosis improving Assessment 77-year-old female admitted with chest pain; hematology consulted for leukocytosis Plan 1. Monitor CBC 2. The leukocytosis appears to be reactive; will follow up with patient in clinic in 2 weeks to repeat blood work. If she appears to still be elevated at that time we will proceed with testing for Abdulaziz 2 mutation. 3. No therapy indicated at present. Sarah Watts Dec 19, 2017 15:20
[2017-12-20] MEDS ORDERED: AZITHROMYCIN 250 MG TAB PO SCH (09:00)
== END 2017-12-19 19:06 | disposition home or self-care (01) | DRG 193 ==
LOC: NEPC 13:22 → NEDA 15:53 → NEPGCP 20:54 → OBSVTOIN 12-18 15:43
PROVIDERS: ADMIT Family Medicine; ATTEND Family Medicine
PROC: 5A1D70Z Performance of Urinary Filtration, Intermittent, Less than 6 Hours Per Day (ICD-10-PCS; principal; 2017-12-15)
DX: J18.9 Pneumonia, unspecified organism (principal); N18.6 End stage renal disease; I12.0 Hypertensive chronic kidney disease with stage 5 chronic kidney disease or end stage renal disease; D89.9 Disorder involving the immune mechanism, unspecified; G62.9 Polyneuropathy, unspecified; J98.11 Atelectasis; D63.1 Anemia in chronic kidney disease; E78.5 Hyperlipidemia, unspecified; E87.6 Hypokalemia; I25.10 Atherosclerotic heart disease of native coronary artery without angina pectoris; D47.3 Essential (hemorrhagic) thrombocythemia; M10.9 Gout, unspecified; Z88.8 Allergy status to other drugs, medicaments and biological substances; Z99.2 Dependence on renal dialysis
CPT/HCPCS: 71045; 78452; 80048; 81001; 82728; 83540; 83550; 83605; 84132; 84484; 85007; 85025; 85027; 85610; 85652; 85730; 86140; 87040; 87449; 90935; 93005; 93017; 93306; 96374; A9502; G0257; J1644; J2543; J2785; J7030